=== PATIENT | male | born 1940 | race African-American/Black ===

== ENCOUNTER 2018-08-13 16:02 | Inpatient (IN) | payer MEDICARE ==
[~2018-08-13] VITALS: Ht 185.4 cm; Wt 99.8 kg
[2018-08-13] MEDS ORDERED: LIDOCAINE JELLY 2% 10ML URO-JET TOP ONE (17:30)
--- NOTE | 2018-08-13 17:55 | NUR ---
APPROX 1000 CC OUTPUT NOTED IN THURMAN, CATH CLAMPED AT THIS TIME. PT REPORTING IMMEDIATE RELIEF AT THIS TIME.
[2018-08-13 17:57] LABS: BASOPHILS % 0.3 % (0.0-1.0); EOSINOPHILS # (AUTO) 0.1 (0.0-0.4); EOSINOPHILS % 0.8 % (0.0-6.0); HEMATOCRIT 29.6 % (38.2-49.6); HEMOGLOBIN 9.7 g/dL (14.0-18.0); LYMPHOCYTES # (AUTO) 0.9 (1.0-3.2); LYMPHOCYTES % 11.7 % (18.0-39.1); MEAN CORPUSCULAR HEMOGLOBIN 26.4 pg (28-32); MEAN CORPUSCULAR HGB CONC 32.8 g/dL (31-35); MEAN CORPUSCULAR VOLUME 80.7 fL (81-99); MONOCYTES # (AUTO) 0.8 (0.2-0.8); MONOCYTES % 10.1 % (4.4-11.3); NEUTROPHILS # (AUTO) 5.7 (2.1-6.9); NEUTROPHILS % 76.4 % (38.7-80.0); PLATELET COUNT 181 x10e3/uL (140-360); RED BLOOD COUNT 3.67 x10e6/uL (4.3-5.7); RED CELL DISTRIBUTION WIDTH 14.7 % (11.7-14.4)
[2018-08-13 18:11] LABS: INR 1.04; PROTHROMBIN TIME 14.1 seconds (11.9-14.5)
[2018-08-13 18:14] LABS: COLOR,URINE AMBER (YELLOW)
[2018-08-13 18:15] LABS: BILIRUBIN,URINE 1+ (NEGATIVE); CLARITY,URINE HAZY (CLEAR); KETONES,URINE NEGATIVE (NEGATIVE); LEUKOCYTE ESTERASE ,URINE NEGATIVE (NEGATIVE); NITRITE,URINE NEGATIVE (NEGATIVE); PROTEIN,URINE DIPSTICK 2+ (NEGATIVE); URINE UROBILINOGEN 0.2 mg/dL (0.2 - 1)
[2018-08-13 18:17] LABS: RBC,URINE >50 /HPF (0-5)
[2018-08-13 18:18] LABS: AMORPHOUS SEDIMENT,URINE FEW (FEW); BACTERIA,URINE FEW /HPF; EPITHELIAL CELLS,URINE FEW /LPF; MUCUS,URINE FEW (RARE)
[2018-08-13 18:19] LABS: ALBUMIN 3.4 g/dL (3.5-5.0); ALBUMIN/GLOBULIN RATIO 0.8 (0.8-2.0); ANION GAP 12.2 mmol/L (8-16); CALCIUM 10.2 mg/dL (8.4-10.2); CREATININE, SERUM 1.89 mg/dL (0.72-1.25); MAGNESIUM 2.3 MG/DL (1.3-2.1); POTASSIUM 4.2 mmol/L (3.5-5.1)
[2018-08-13] MEDS: CEFTRIAXONE SOD 1 GM/NS 50 ML 50 ML IV SCH (20:45)
[2018-08-13] MEDS: SODIUM CHLORIDE 0.9% 1000ML 1,000 ML IV SCH (20:45)
[2018-08-13] MEDS: ONDANSETRON HCL INJ 2MG/ML 2ML 2 MG/ML VIAL IV PRN (20:45)
[2018-08-13] MEDS: MORPHINE SULFATE INJ 4 MG/ML INJ 1ML IV PRN (20:45)
[2018-08-13 21:25] VITALS: BP 141/77
[2018-08-13 21:38] VITALS: BP 141/77
[2018-08-13 21:40] VITALS: BP 141/77
[2018-08-13] MEDS ORDERED: CIPRO500 MG PO (23:17)
[2018-08-13] MEDS ORDERED: ULTRAM 50MG50 MG PO (23:17)
[2018-08-14] VITALS (8 sets, daily range): BP systolic 94–132; BP diastolic 56–65
[2018-08-14 05:36] LABS: BASOPHILS % 0.2 % (0.0-1.0); EOSINOPHILS % 0.5 % (0.0-6.0); HEMATOCRIT 26.7 % (38.2-49.6); HEMOGLOBIN 8.6 g/dL (14.0-18.0); LYMPHOCYTES # (AUTO) 1.1 (1.0-3.2); LYMPHOCYTES % 18.8 % (18.0-39.1); MEAN CORPUSCULAR HEMOGLOBIN 26.1 pg (28-32); MEAN CORPUSCULAR HGB CONC 32.2 g/dL (31-35); MEAN CORPUSCULAR VOLUME 81.2 fL (81-99); MONOCYTES # (AUTO) 0.6 (0.2-0.8); MONOCYTES % 9.6 % (4.4-11.3); NEUTROPHILS # (AUTO) 4.2 (2.1-6.9); NEUTROPHILS % 70.2 % (38.7-80.0); PLATELET COUNT 156 x10e3/uL (140-360); RED BLOOD COUNT 3.29 x10e6/uL (4.3-5.7); RED CELL DISTRIBUTION WIDTH 14.6 % (11.7-14.4)
[2018-08-14 05:58] LABS: ALANINE AMINOTRANSFERASE 13 IU/L (0-55); ALBUMIN 2.8 g/dL (3.5-5.0); ALBUMIN/GLOBULIN RATIO 0.8 (0.8-2.0); ALKALINE PHOSPHATASE 74 IU/L (40-150); ANION GAP 10.5 mmol/L (8-16); BLOOD UREA NITROGEN 14 mg/dL (7-26); BUN/CREATININE RATIO 13 (6-25); CALCIUM 9.3 mg/dL (8.4-10.2); CARBON DIOXIDE 28 mmol/L (22-29); CHLORIDE 108 mmol/L (98-107); CREATININE, SERUM 1.12 mg/dL (0.72-1.25); EST GLOMERULAR FILTRATION RATE > 60 ML/MIN (60-); GLUCOSE 105 mg/dL (74-118); POTASSIUM 3.5 mmol/L (3.5-5.1); SODIUM 143 mmol/L (136-145)
[2018-08-14] MEDS: SODIUM CHLORIDE 0.9% 1000ML 1,000 ML IV SCH (06:46)
[2018-08-14] MEDS: CEFTRIAXONE SOD 1 GM/NS 50 ML 50 ML IV SCH ×2 (09:00→20:52)
--- NOTE | 2018-08-14 09:00 | NUR ---
Simple irrigation provided. moderate amount of blood clots noted.
--- NOTE | 2018-08-14 10:10 | NUR ---
O aware of patient's status.
[2018-08-14] MEDS: SOD CHL 0.45%/POT CHL 20MEQ 1,000 ML IV SCH ×2 (10:47→18:43)
[2018-08-14] MEDS: MORPHINE SULFATE INJ 4 MG/ML INJ 1ML IV PRN ×2 (10:48→20:52)
[2018-08-14] MEDS ORDERED: IOPAMIDOL 370 MG/ML 200 ML INFUS..BTL INJ ONE (11:15)
[2018-08-14] MEDS ORDERED: SODIUM CHLORIDE 0.9% 250ML 250 ML ONE (11:15)
--- NOTE | 2018-08-14 12:00 | NUR ---
Simple irrigation done as ordered. moderate amount of blood clots noted.
--- NOTE | 2018-08-14 14:00 | NUR ---
Simple irrigation done as ordered. large amount of clots noted
[2018-08-14] MEDS: SENNA-S TABLET PO SCH (16:00)
--- NOTE | 2018-08-14 16:30 | NUR ---
Simple irrigation done as ordered. moderate amount of clots noted
--- NOTE | 2018-08-14 17:03 | History and Physical ---
CHIEF COMPLAINT: Urinary retention. HISTORY OF PRESENT ILLNESS: The patient is a 77 years old male with enlarged prostate, came in with urinary retention. The patient was having increase in abdominal pelvic discomfort. Chavez catheter placed. The patient does have gross hematuria. He is stable at this time. PAST MEDICAL HISTORY: Enlarged prostate with possible prostate cancer. PAST SURGICAL HISTORY: Lower back surgery. SOCIAL HISTORY: The patient does not smoke or use alcohol, no recreational drugs. ALLERGIES: NO KNOWN ALLERGIES. HOME MEDICATION: Cipro and tramadol. REVIEW OF SYSTEMS: Urinary retention, suprapubic pain, improving. PHYSICAL EXAMINATION: VITAL SIGNS: Temperature is 99.7, blood pressure 130/62, pulse rate 86, respirations 18. GENERAL: The patient is not in acute distress. HEENT: Normocephalic, atraumatic. Anicteric. NECK: Supple grossly. PULMONARY: Diminished breath sounds. CARDIOVASCULAR: Regular rate and rhythm. ABDOMEN: Soft, nontender, non-distention. Chavez catheter in place. Gross hematuria. EXTREMITIES: No cyanosis or edema. NEUROLOGIC: No gross focal deficit. LABORATORY DATA: Sodium is 143, potassium 3.5, chloride 108, bicarb 28, BUN 14, creatinine 1.1, glucose 105. WBC 5.9, hemoglobin 8.6, hematocrit 26.7, platelets are 156. IMPRESSION: 1. Urinary retention with a Chavez catheter in place, now with gross hematuria. 2. Enlarged prostate with possible prostate cancer. 3. Electrolyte disorder. 4. Acute blood loss anemia secondary to gross hematuria. PLAN: Repeat lab work. IV fluid with some potassium. Consult Dr. Jeronimo Nielson, patient's urologist. IV fluids. We will monitor the patient closely. We will repeat the lab work in the morning. Rocephin 1 g daily. MD VIKTORIYA Carr/KATIE /[id number]
[2018-08-14] MEDS: HYDROCODONE/APAP 10MG-325MG TAB PO PRN (18:43)
--- NOTE | 2018-08-14 18:45 | NUR ---
attempted to irrigate Chavez as ordered. Unable to aspirate to clear clots. Patient c/o discomfort. Paged
--- NOTE | 2018-08-14 19:00 | NUR ---
WALKING ROUNDS PERFORMED, RECEIVED PT LAYING SEMI FOWLERS IN BED, PT REQUESTING TO HAVE THURMAN REMOVED IT IS HURTING HIM TOO MUCH. MANUAL IRRIGATION ATTEMPTED, UNSUCCESSFUL. DAY SHIFT NURSE LEFT ROOM TO TALK WITH MD Nicolasa HAYDEN CONCERNING INABILITY TO FLUSH THURMAN, DAY SHIFT NURSE RECEIVED ORDERS. 1931 - DEFLATED BULB AND ADVANCED CATHETER, ABLE TO IRRIGATE MULTIPLE LARGE CLOTS AND DARK RED URINE. CONTINUED TO MANUAL IRRIGATE CLOTS OUT. TOTAL OF 1500ML OF MANUAL IRRIGATION PERFORMED. DAY SHIFT NURSE CONTINUED MANUAL IRRIGATION AT THIS TIME.
--- NOTE | 2018-08-14 19:05 | NUR ---
Dr.Hampel Renteria. aware of patient's status. See orders. Report given to oncoming nurse of patient's status.
--- NOTE | 2018-08-14 20:30 | NUR ---
AT THIS TIME DISCONTINUED [address] 24F CATHETER AND INSERTED 24F [address]H [address] CATHETER. MANUAL IRRIGATION CONTINUED, URINE NOTED TO BE BALDERRAMA RED BUT NO CLOTS IDENTIFIED. CONNECTED CBI AT THIS TIME. RESTARTED IVF.
[2018-08-15] VITALS (11 sets, daily range): BP systolic 90–172; BP diastolic 55–98
--- NOTE | 2018-08-15 01:41 | NUR ---
SPOKE WITH RADIOLOGY CONCERNING ABDOMEN AND PELVIS CT NOT BEING DICTATED. WAS INFORMED THAT THE IMAGES WERE NOT TRANSFERRING PROPERLY AND IN ENTIRETY TO OFFSITE RADIOLOGIST TO READ AND THE PROBLEM WAS BEING WORKED ON, RADIOLOGIST WILL BE HERE IN AM TO READ IMAGES.
[2018-08-15] MEDS: SOD CHL 0.45%/POT CHL 20MEQ 1,000 ML IV SCH ×3 (04:08→18:15)
[2018-08-15 05:46] LABS: BASOPHILS % 0.3 % (0.0-1.0); EOSINOPHILS # (AUTO) 0.1 (0.0-0.4); EOSINOPHILS % 1.1 % (0.0-6.0); HEMATOCRIT 23.4 % (38.2-49.6); LYMPHOCYTES # (AUTO) 1.4 (1.0-3.2); LYMPHOCYTES % 18.7 % (18.0-39.1); MEAN CORPUSCULAR HEMOGLOBIN 25.8 pg (28-32); MEAN CORPUSCULAR HGB CONC 32.5 g/dL (31-35); MEAN CORPUSCULAR VOLUME 79.3 fL (81-99); MONOCYTES # (AUTO) 0.8 (0.2-0.8); MONOCYTES % 10.5 % (4.4-11.3); NEUTROPHILS % 68.7 % (38.7-80.0); PLATELET COUNT 157 x10e3/uL (140-360); RED BLOOD COUNT 2.95 x10e6/uL (4.3-5.7); RED CELL DISTRIBUTION WIDTH 14.6 % (11.7-14.4)
[2018-08-15 05:50] LABS: HEMOGLOBIN 7.6 g/dL (14.0-18.0)
[2018-08-15 06:06] LABS: ANION GAP 12.7 mmol/L (8-16); BLOOD UREA NITROGEN 17 mg/dL (7-26); BUN/CREATININE RATIO 13 (6-25); CARBON DIOXIDE 25 mmol/L (22-29); CHLORIDE 106 mmol/L (98-107); CREATININE, SERUM 1.36 mg/dL (0.72-1.25); EST GLOMERULAR FILTRATION RATE > 60 ML/MIN (60-); GLUCOSE 104 mg/dL (74-118); POTASSIUM 3.7 mmol/L (3.5-5.1); SODIUM 140 mmol/L (136-145)
--- NOTE | 2018-08-15 06:07 | NUR ---
PAGE PLACED FOR MD Nicolasa HAYDEN CONCERNING PATIENT UPDATE ON CBI. PT HAS MAINTAINED BALDERRAMA RED URINE WITH NO CLOTS THE ENTIRE NIGHT WITH THE CBI RUNNING WIDE OPEN SINCE CBI STARTED AT 2029 ON 08/14. WAITING FOR CALLBACK.
--- NOTE | 2018-08-15 06:30 | NUR ---
SPOKE WITH MD Nicolasa HAYDEN CONCERNING PT BALDERRAMA URINE WITH CBI AND DECREASED HH. NEW ORDERS RECEIVED.
--- NOTE | 2018-08-15 07:00 | NUR ---
RECEIVED BEDSIDE SHIFT CHANGE REPORT FROM MONA CONSTANTINO. PT DENIES NEEDS AT THIS TIME.
--- NOTE | 2018-08-15 07:01 | NUR ---
BEDSIDE SHIFT REPORT PERFORMED. PT IS AAOX3, RR EVEN AND NON-LABORED. NO S/SX OF DISTRESS NOTED. LEFT PT LAYING SEMI FOWLERS IN BED, BED IN LOW LOCKED POSITION, SIDE RAILS UPX3, CALL LIGHT AND PHONE WITHIN REACH.
--- NOTE | 2018-08-15 07:27 | Diagnostic Imaging Report ---
EXAMINATION: CT of the abdomen and pelvis with contrast. TECHNIQUE: Spiral CT images of the abdomen and pelvis were performed from the lung bases to the lesser trochanters before and after the intravenous administration of 100 cc Isovue-370 per hematuria protocol. Coronal and sagittal reformatted images were obtained. COMPARISON: None. CLINICAL HISTORY:Hematuria, prostate cancer, anemia DISCUSSION: ABDOMEN/PELVIS: LOWER THORAX:Subsegmental atelectasis in the dependent lower lobes. Slight granuloma right lower lobe. HEPATOBILIARY: Subcentimeter hypoattenuating lesion in segment 4A, too small to further characterize but likely represent a small cyst. No additional focal hepatic lesion. No intrahepatic biliary dilatation. Gallbladder is unremarkable. SPLEEN: No splenomegaly. PANCREAS: No focal masses or ductal dilatation. ADRENALS: No adrenal nodules. KIDNEYS/URETERS: Mild bilateral hydronephrosis. 1.8 cm simple cyst in the right kidney. 1.8 cm simple cyst in the left kidney. Additional subcentimeter hypoattenuating lesions, too small to further characterize, within both kidneys, likely to represent additional small cysts. Noncontrast images show no calculi in the upper collecting systems or ureters. Urographic phase images show no filling defects in the visualized segments of the ureters. The distal third of the left ureter are poorly opacified, likely related to timing of acquisition. PELVIC ORGANS/BLADDER: The retention balloon of a Chavez catheter lies within the urinary bladder. Surrounding the retention balloon and occupying the majority of the urinary bladder is a large ill-defined hyperattenuating focus without enhancement on urographic images compatible with clot. The prostate is markedly enlarged, measuring approximately 8.2 cm AP x 8 cm transverse, with invasion of the left posterior-lateral wall of the urinary bladder exemplified on series 6 image 151. The seminal vesicles are not discretely identified. PERITONEUM/RETROPERITONEUM: No free air or fluid. LYMPH NODES: The above-described prostate mass is contiguous with a conglomerate of left pelvic sidewall/iliac chain lymph nodes measuring approximately 8 cm AP x 3 cm transverse in aggregate (series 6 image 126). metastatic right iliac chain lymphadenopathy measures 3.3 cm AP x 1.8 cm transverse. Retroperitoneal lymphadenopathy extends above the level of the renal veins with denial management representative lymph nodes measuring 1.4 cm short axis seen on series 6 image 53 and 3.6 cm AP x 2.4 cm transverse (series 6 image 67). Multiple enlarged aortocaval, retrocaval, and periaortic lymph nodes are also noted. The most superior enlarged lymph node is preaortic just inferior to the origin of the SMA, and measures 1.5 cm short axis as seen on series 6 image 53. VESSELS: Abdominal aorta, major branch vessels, and iliac arterial systems are patent. Portal vein, splenic vein, and central superior mesenteric vein are patent. GI TRACT: The large bowel shows no evidence of distention or wall thickening. Gas and fecal material are noted throughout. The appendix is normal. BONES AND SOFT TISSUE: Age indeterminant pathologic avulsion fracture of the right lesser trochanter with underlying 1.9 cm lytic lesion at the donor site of the femur (series 6 image 189). 1.5 cm lytic lesion in the right initial tuberosity (series 6 image 177). 1.5 cm lytic lesion in the left ilium adjacent to the SI joint. 2 cm lesion in the right ilium adjacent to the SI joint. Additional subcentimeter lytic lesions along the right iliac crest (series 6 image 108). Scattered lytic lesions of the axial skeleton involving the right lamina of L5 (series 6 image 100), the left transverse process of L2, the L1 vertebral body with pathologic mild anterior compression fracture, and the posterior aspect of the T9 vertebral body with extension to the pedicles as well as the partially visualized anterior aspect of the T8 vertebral body. IMPRESSION: Large (8 cm) mass originating in the prostate invades the left posterolateral urinary bladder wall and results in mild bilateral hydronephrosis. Large amount of blood clot within the urinary bladder adjacent to the retention balloon of an appropriately positioned Chavez catheter. Metastatic lymphadenopathy involves the left greater than right iliac chains and retroperitoneum, extending cranial to the level of the renal veins. Widespread osseous metastases as above, with age indeterminant pathologic avulsion injury of the right lesser trochanter and mild anterior compression fracture of L1. Signed by: Dr. Leif Amador M.D. on 08/15/2018 7:24 AM
[2018-08-15] MEDS ORDERED: ACETAMINOPHEN 325 MG TAB PO NR (08:21)
[2018-08-15] MEDS ORDERED: FUROSEMIDE INJ 10 MG/ML 2 ML VIAL IV PRN (08:30)
[2018-08-15] MEDS ORDERED: DIPHENHYDRAMINE HCL INJ 50 MG/ML VIAL IV NR (08:30)
[2018-08-15] MEDS ORDERED: SODIUM CHLORIDE 0.9% 250ML 250 ML IV NR ×2 (08:30→09:00)
[2018-08-15] MEDS: SENNA-S TABLET PO SCH ×2 (08:46→16:51)
[2018-08-15] MEDS: CEFTRIAXONE SOD 1 GM/NS 50 ML 50 ML IV SCH ×2 (08:50→22:45)
[2018-08-15] MEDS: FUROSEMIDE INJ 10 MG/ML 2 ML VIAL IV PRN ×2 (14:47→18:55)
[2018-08-15] MEDS: MORPHINE SULFATE INJ 4 MG/ML INJ 1ML IV PRN ×2 (14:47→18:34)
--- NOTE | 2018-08-15 15:28 | Diagnostic Imaging Report ---
Exam: Pelvis, single frontal view, right femur 2 views History: Leg pain Comparison: CT abdomen and pelvis 08/14/2018 Findings: Pathologic avulsion of the right lesser trochanter is again seen, with 2.8 cm upward retraction. 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 Chavez catheter projects over the pelvis. Distally, the femur is intact without additional displaced fracture or dislocation. No osseous destructive lesions. Degenerative arthrosis of the knee partially visualized. Soft tissues are unremarkable. Impression: Pathologic avulsion injury of the right lesser trochanter with 2.8 cm retraction is seen to better advantage on comparison CT abdomen and pelvis 08/14/2018. Refer to the report for comparison CT for description of additional presumed osseous metastatic lesions. No additional displaced fracture. Signed by: Dr. Leif Amador M.D. on 08/15/2018 3:25 PM
--- NOTE | 2018-08-15 18:00 | NUR ---
PT'S THURMAN CONTINUED TO CLOT AND BLOCK EVEN WITH WIDE OPEN BLADDER IRRIGATION. CLOTS AND FLUID LEAKING AROUND THURMAN. HAVING TO MANUAL IRRIGATE AND PULL CLOTS OUT OF THURMAN EVERY 15 TO 20 MIN. TO KEEP IRRIGATION GOING WITHOUT PAIN TO PT. THIS HAS BEEN NEEDING TO BE DONE SINCE 0900. CALLED DR. HAYDEN. ORDER GIVEN TO TRANSFER TO ICU.
[2018-08-15] MEDS: ONDANSETRON HCL INJ 2MG/ML 2ML 2 MG/ML VIAL IV PRN (18:34)
--- NOTE | 2018-08-15 20:04 | Consultation ---
DATE OF CONSULTATION: 08/15/2018 CHIEF COMPLAINT: Right hip pain. HISTORY OF PRESENT ILLNESS: The patient is a 77-year-old gentleman with a history of prostate cancer. He states that he has been treated for this cancer for the last five years. In the last few weeks, he has had some progressive problems. He developed urinary retention and was admitted to the hospital. He is noted to have widespread metastases of his prostate cancer. Orthopedic consultation was requested for a lesion involving his proximal right femur. PAST MEDICAL HISTORY: Prostate cancer. PAST SURGICAL HISTORY: Previous surgeries include lumbar surgery and right knee cyst removal. MEDICATIONS: Please see admission H and P. ALLERGIES: HE DENIES ANY DRUG ALLERGIES. SOCIAL HISTORY: He does not smoke or drink. He lives at home with his . 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 He has seven grown children. PHYSICAL EXAMINATION: He appears somewhat somnolent. He is in bed. He is receiving blood transfusions. We did not attempt to get him up and walk. He has pain with any attempted passive range of motion of his right hip. He has difficulty lifting his right lower extremity. He has diminished muscle tone and some widespread edema in the right lower extremity. LABORATORY STUDIES: CT of the abdomen and pelvis was reviewed. He has widespread metastases in his pelvis, lumbar spine and a lesion in the proximal right femur. This appears to have led to an avulsion of his lesser trochanter. IMPRESSION: Metastatic prostate cancer with bone lesions. He has a lesion in his proximal femur, which likely represents an impending fracture. I will order some plain x-rays to further assess. I explained the findings and the possibility of prophylactic fixation to the patient. He states he understands and we will discuss further once we have his x-rays. Thank you for the consultation. Leif Redd MD DR/KATIE /[id number]
[2018-08-15 20:22] LABS: HEMATOCRIT 30.2 % (38.2-49.6); HEMOGLOBIN 9.9 g/dL (14.0-18.0)
[2018-08-15] MEDS ORDERED: BELLADONNA/OPIUM 30 MG SUPP RC PRN (21:15)
--- NOTE | 2018-08-15 21:15 | NUR ---
Updated Dr. Nicolasa Nielson on patient's current status and repeat Hgb 9.9 Patient has received 2 PRBC at this current time, MD updated on previous order to transfuse [address] Nielson ordered to transfuse 1 more PRBC at this time.
[2018-08-15] MEDS ORDERED: BELLADONNA/OPIUM 60 MG SUPP PR PRN (21:30)
[2018-08-15] MEDS ORDERED: SODIUM CHLORIDE 0.9% 250ML 250 ML ONE (22:26)
--- NOTE | 2018-08-15 23:48 | NUR ---
Notified Dr. Alvarez of HR in 120's, BP, and positive SIRS ALERT in sepsis screening. No new orders received. No need to draw lactic acid per Dr. Alvarez. Updated MD on blood transfusion order per Dr. Nielson.
[2018-08-16] VITALS (25 sets, daily range): BP systolic 87–128; BP diastolic 53–78
[2018-08-16] MEDS: ACETAMINOPHEN 325 MG TAB PO PRN (00:41)
[2018-08-16] MEDS: SOD CHL 0.45%/POT CHL 20MEQ 1,000 ML IV SCH ×3 (03:00→18:15)
[2018-08-16 05:09] LABS: BASOPHILS % 0.4 % (0.0-1.0); EOSINOPHILS # (AUTO) 0.1 (0.0-0.4); EOSINOPHILS % 1.7 % (0.0-6.0); HEMATOCRIT 26.7 % (38.2-49.6); HEMOGLOBIN 8.8 g/dL (14.0-18.0); LYMPHOCYTES # (AUTO) 1.4 (1.0-3.2); LYMPHOCYTES % 18.5 % (18.0-39.1); MEAN CORPUSCULAR HEMOGLOBIN 26.9 pg (28-32); MEAN CORPUSCULAR VOLUME 81.7 fL (81-99); MONOCYTES # (AUTO) 0.9 (0.2-0.8); MONOCYTES % 11.4 % (4.4-11.3); NEUTROPHILS # (AUTO) 5.1 (2.1-6.9); NEUTROPHILS % 67.1 % (38.7-80.0); PLATELET COUNT 109 x10e3/uL (140-360); RED BLOOD COUNT 3.27 x10e6/uL (4.3-5.7); RED CELL DISTRIBUTION WIDTH 14.5 % (11.7-14.4)
[2018-08-16 05:32] LABS: ALANINE AMINOTRANSFERASE 11 IU/L (0-55); ALBUMIN 2.3 g/dL (3.5-5.0); ALBUMIN/GLOBULIN RATIO 0.8 (0.8-2.0); ALKALINE PHOSPHATASE 57 IU/L (40-150); ANION GAP 11.8 mmol/L (8-16); BLOOD UREA NITROGEN 25 mg/dL (7-26); BUN/CREATININE RATIO 19 (6-25); CALCIUM 8.8 mg/dL (8.4-10.2); CARBON DIOXIDE 24 mmol/L (22-29); CHLORIDE 104 mmol/L (98-107); CREATININE, SERUM 1.32 mg/dL (0.72-1.25); EST GLOMERULAR FILTRATION RATE > 60 ML/MIN (60-); GLUCOSE 114 mg/dL (74-118); MAGNESIUM 1.8 MG/DL (1.3-2.1); POTASSIUM 3.8 mmol/L (3.5-5.1); SODIUM 136 mmol/L (136-145)
--- NOTE | 2018-08-16 06:15 | NUR ---
Message left with answering service at [address] Nielson regarding drop of Hgb. Awaiting return call.
--- NOTE | 2018-08-16 07:02 | NUR ---
Dr. Nielson rounding at bedside. Dr. Nielson ordered patient to receive 1 more unit PRBC. CBC in AM. Per MD, continue manual irrigation Q 2 as well as CBI.
[2018-08-16] MEDS: CEFTRIAXONE SOD 1 GM/NS 50 ML 50 ML IV SCH ×2 (07:44→22:05)
[2018-08-16] MEDS ORDERED: SODIUM CHLORIDE 0.9% 250ML 250 ML ONE (07:55)
[2018-08-16] MEDS: SENNA-S TABLET PO SCH ×2 (08:00→17:18)
[2018-08-16] MEDS: FUROSEMIDE INJ 10 MG/ML 2 ML VIAL IV PRN (11:31)
--- NOTE | 2018-08-16 13:43 | NUR ---
ETHICS CONSULT QUESTION: ICU nursing staff requested the Ethics Consult Service concerning the patient's family's unrealistic expectation of the plan of care, specifically statements made by pt's surrounding divine healing. ASSESSMENT: I spoke to the patient concerning his illness and he states that he is a person of linnette but is, "trusting God either way" thus he appears to be coming to terms with the severity of his condition. Pt states he is "blessed" to know the love of his family. His family is a strong emotional/spiritual support and described his family as providing a feeling of being "full of love." Pt states one of his sons is a "preacher" and helps with his spiritual needs. There were no family members at bedside. The pt states he "trusts" his doctor and indicates he is willing to follow his physician's advice moving forward. RECOMMENDATION: Based on my visit this consult is best categorized as a spiritual care need due to insufficient criteria for an ethics consult. However, it would be appropriate for the music typographer to follow this patient as able. Thank you for this consult. Please re-consult as needed. RUPALI Julian, Ethics Consult Service [facility] O: [phone] Pager: [phone] ([phone] number calling from)
--- NOTE | 2018-08-16 22:27 | NUR ---
Left voicemail message for Dr. Alvarez at [phone] regarding patient request for suppository or medication for constipation. Awaiting return call.
[2018-08-17] VITALS (22 sets, daily range): BP systolic 104–129; BP diastolic 48–96
[2018-08-17] MEDS: SOD CHL 0.45%/POT CHL 20MEQ 1,000 ML IV SCH ×3 (00:06→18:15)
[2018-08-17 05:21] LABS: BASOPHILS % 0.3 % (0.0-1.0); EOSINOPHILS # (AUTO) 0.3 (0.0-0.4); EOSINOPHILS % 3.9 % (0.0-6.0); HEMATOCRIT 26.3 % (38.2-49.6); HEMOGLOBIN 8.7 g/dL (14.0-18.0); LYMPHOCYTES # (AUTO) 1.3 (1.0-3.2); LYMPHOCYTES % 17.4 % (18.0-39.1); MEAN CORPUSCULAR HEMOGLOBIN 27.5 pg (28-32); MEAN CORPUSCULAR HGB CONC 33.1 g/dL (31-35); MEAN CORPUSCULAR VOLUME 83.2 fL (81-99); MONOCYTES # (AUTO) 0.7 (0.2-0.8); MONOCYTES % 9.7 % (4.4-11.3); NEUTROPHILS # (AUTO) 5.1 (2.1-6.9); NEUTROPHILS % 67.9 % (38.7-80.0); PLATELET COUNT 108 x10e3/uL (140-360); RED BLOOD COUNT 3.16 x10e6/uL (4.3-5.7); RED CELL DISTRIBUTION WIDTH 14.6 % (11.7-14.4)
[2018-08-17 05:39] LABS: ANION GAP 9.7 mmol/L (8-16); BLOOD UREA NITROGEN 18 mg/dL (7-26); BUN/CREATININE RATIO 19 (6-25); CALCIUM 8.4 mg/dL (8.4-10.2); CARBON DIOXIDE 27 mmol/L (22-29); CHLORIDE 105 mmol/L (98-107); CREATININE, SERUM 0.95 mg/dL (0.72-1.25); EST GLOMERULAR FILTRATION RATE > 60 ML/MIN (60-); GLUCOSE 104 mg/dL (74-118); POTASSIUM 3.7 mmol/L (3.5-5.1); SODIUM 138 mmol/L (136-145)
[2018-08-17] MEDS: CEFTRIAXONE SOD 1 GM/NS 50 ML 50 ML IV SCH ×2 (07:57→20:15)
[2018-08-17] MEDS: SENNA-S TABLET PO SCH ×2 (07:58→17:06)
[2018-08-17] MEDS ORDERED: BELLADONNA/OPIUM 60 MG SUPP PR ONE (09:48)
[2018-08-17] MEDS ORDERED: IOPAMIDOL 610MG/1ML 300 MG/ML VIAL IV ONE (09:48)
--- NOTE | 2018-08-17 10:00 | NUR ---
PT TAKEN FOR SURGERY,
[2018-08-17] MEDS ORDERED: FENTANYL CITRATE/PF 100MCG/2 ML INJ ONE ×2 (12:09→18:07)
[2018-08-17] MEDS ORDERED: SODIUM CHLORIDE 0.9% 250ML 250 ML ONE ×3 (13:51→15:13)
[2018-08-17] MEDS ORDERED: KETAMINE HCL INJ 50 MG/ML 10 ML VIAL ONE (18:07)
[2018-08-17] MEDS ORDERED: MIDAZOLAM HCL 2 MG/2 ML VIAL ONE (18:07)
[2018-08-17] MEDS ORDERED: ONDANSETRON HCL INJ 2MG/ML 2ML 2 MG/ML VIAL ONE (18:46)
[2018-08-17] MEDS ORDERED: SEVOFLURANE INHAL SOLN 250 ML PEN BTL ONE (18:46)
[2018-08-17] MEDS ORDERED: PROPOFOL IV EMULSION 10 MG/ML 20 ML VIAL ONE (18:46)
[2018-08-17] MEDS ORDERED: LIDOCAINE HCL 2% LOCAL INJ 5 ML SDV VIAL INJ ONE (18:46)
--- NOTE | 2018-08-17 21:27 | NUR ---
prbc started Addendum: 08/18/18 at 0017 by Lynn Mcconnell RN completed. no s/s reaction
[2018-08-17] MEDS: CEPACOL SORE THROAT LOZENGES PO PRN (21:30)
[2018-08-17] MEDS ORDERED: CEPACOL SORE THROAT LOZENGES PO ONE (22:27)
[2018-08-18] VITALS (24 sets, daily range): BP systolic 115–138; BP diastolic 50–79
[2018-08-18] MEDS: SOD CHL 0.45%/POT CHL 20MEQ 1,000 ML IV SCH ×2 (02:15→06:46)
[2018-08-18 05:07] LABS: BASOPHILS % 0.2 % (0.0-1.0); EOSINOPHILS # (AUTO) 0.2 (0.0-0.4); EOSINOPHILS % 2.3 % (0.0-6.0); LYMPHOCYTES % 16.1 % (18.0-39.1); MEAN CORPUSCULAR HEMOGLOBIN 27.6 pg (28-32); MEAN CORPUSCULAR HGB CONC 33.3 g/dL (31-35); MEAN CORPUSCULAR VOLUME 82.8 fL (81-99); MONOCYTES # (AUTO) 0.6 (0.2-0.8); MONOCYTES % 8.8 % (4.4-11.3); NEUTROPHILS # (AUTO) 4.6 (2.1-6.9); NEUTROPHILS % 71.8 % (38.7-80.0); PLATELET COUNT 127 x10e3/uL (140-360); RED BLOOD COUNT 3.26 x10e6/uL (4.3-5.7); RED CELL DISTRIBUTION WIDTH 14.3 % (11.7-14.4)
[2018-08-18 05:34] LABS: ANION GAP 12.1 mmol/L (8-16); CALCIUM 8.9 mg/dL (8.4-10.2); CREATININE, SERUM 2.24 mg/dL (0.72-1.25); POTASSIUM 4.1 mmol/L (3.5-5.1)
[2018-08-18] MEDS: SENNA-S TABLET PO SCH ×2 (08:23→18:26)
[2018-08-18] MEDS: CEFTRIAXONE SOD 1 GM/NS 50 ML 50 ML IV SCH ×2 (08:23→20:53)
--- NOTE | 2018-08-18 08:32 | Diagnostic Imaging Report ---
EXAM: US RENAL RETROPERITONEAL COMP DATE: 08/18/2018 12:00 AM INDICATION: ^ARF. NEVER SAW U/O'S, IF HYDRO, NEEDS PCN/STENT ^[id number] ^[id number] COMPARISON: CT abdomen/pelvis, 08/14/2018 FINDINGS: Grayscale and color flow Doppler ultrasound of the kidneys and urinary bladder performed. Right kidney: 11.4 x 5.8 x 6.1 cm. Cortical echogenicity normal. Cortical thickness 2.3 cm. The right renal collecting system is dilated. No contour deforming mass. Left kidney: 11.3 x 6.6 x 5.1 cm. Cortical thickness 2.5 cm. Cortical echogenicity normal. The left collecting system is dilated. No contour deforming mass. Urinary bladder: The bladder contains a Chavez catheter and is decompressed. The prostate is enlarged measuring 6.0 x 5.0 x 7.1 cm with a calculated volume of 112 cc IMPRESSION: 1. Mild to moderate bilateral hydronephrosis. No contour deforming renal mass. 2. Urinary bladder contains Chavez catheter and is decompressed. Marked enlargement of the prostate noted. Signed by: Dr. Toney Olmedo M.D. on 08/18/2018 8:29 AM
[2018-08-18] MEDS: SODIUM CHLORIDE 0.9% 1000ML 1,000 ML IV SCH ×2 (10:19→20:53)
--- NOTE | 2018-08-18 10:35 | NUR ---
MD ANDERSON NOTIFIED OF RENAL ULTRASOUND, RECEIVED ORDERS
--- NOTE | 2018-08-18 12:05 | NUR ---
ASSESSMENT: Spiritual concern Pt feels powerless concerning "procedure after procedure." Pt states his family ( and seven children) are supportive and have been visiting in the evenings. Family is central to pt's life and values. Intervention: Provided empathic listening and prayer. Established rapport and connectedness. Facilitated conversation about pt's values. Outcome: Pt's expressed gratitude for visit and requested follow up. RUPALI Amezquitalain Spiritual Care Department O: [phone] Pager: [phone] ([phone] number calling from)
--- NOTE | 2018-08-18 13:21 | NUR ---
Nutrition Screen Note RD Recommendation for Physician: -Continue current diet as ordered Plan of Care: RD following, monitoring for tolerance and adequacy Nutrition reason for involvement: LOS Primary Diagnose(s): Metastatic prostate cancer with bone lesions. PMH: prostate cancer Ht: 73in Wt: 220lb BMI: 29kg/m2 IBW: 184lb RD Assessment: (08/18) Chart reviewed. Labs and meds reviewed. 77yo M, who was admitted for urinary retention. Visited pt in the room. Pt reported good appetite without any GI complains. Pt denied any chewing or swallowing difficulty. 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 Will continue to monitor and follow. Current Diet: cardiac diet Malnutrition Evaluation (08/18) The patient does not meet criteria for a specified degree of malnutrition at this time. Will re-evaluate at follow-up as appropriate. Diet Education Needs Assessment: Diet education not indicated. Nutrition Care Level: low Signed: Susannah Herrera, MS, RD, LD
[2018-08-18] MEDS ORDERED: MIDAZOLAM HCL 2 MG/2 ML VIAL ONE (14:09)
[2018-08-18] MEDS ORDERED: SODIUM CHLORIDE 0.9% 500ML 1,000 ML ONE (14:10)
[2018-08-18] MEDS ORDERED: FENTANYL CITRATE/PF 100MCG/2 ML INJ ONE (14:10)
[2018-08-18] MEDS ORDERED: LIDOCAINE HCL 2% LOCAL 20 ML VIAL ONE (14:10)
[2018-08-18] MEDS: HYDROCODONE/APAP 10MG-325MG TAB PO PRN (20:53)
[2018-08-19] VITALS (19 sets, daily range): BP systolic 116–150; BP diastolic 62–96
--- NOTE | 2018-08-19 00:11 | Consultation ---
DATE OF CONSULTATION: 08/18/2018 HISTORY OF PRESENT ILLNESS: History is predominantly from the patient, partly from the chart. This is a 77-year-old gentleman with stage IV prostate cancer with the last PSA of 111, apparent bone metastases, underwent extensive urologic procedure, clot evacuation with cystoscopy and TURP, apparently has stents in his ureters. Renal consult for management of acute kidney injury. Looking at the records, on August 13, the patient had a serum creatinine of 1.9. The patient himself denies any prior history of any renal insufficiency or kidney stone disease. He was started on Lupron injections about several years ago. Currently lying supine. Denies shortness of breath. No nausea or vomiting. His kidney ultrasound shows [id number] bilateral hydronephrosis. He is currently on continuous bladder irrigation. Had an abdominal CT pelvis with contrast done on the August 14, and had significant findings of a large 8 cm mass originating in the prostate invades left posterolateral urinary bladder wall, metastatic lymphadenopathy, widespread osseous metastases as above, and mild anterior compression fracture of L1. Current labs show a hemoglobin of 9. Chemistry show a calcium level of 8.9. Liver functions noted. Total protein 5.3, potassium 4.1, bicarbonate 26, and creatinine 2.24. Urine culture results are pending. PHYSICAL EXAMINATION: GENERAL: Awake and alert, lying supine in no apparent distress. VITAL SIGNS: Blood pressure 123/72, pulse rate 93, afebrile. HEAD AND NECK: Cornea clear. Mucosa moist. LUNGS: Relatively clear. No rales or rhonchi. HEART: S1 and S2 audible. ABDOMEN: Otherwise soft and nontender. No deep palpation done. LOWER EXTREMITY: No edema. : Indwelling Chavez catheter with bladder irrigation underway. IMPRESSION AND PLAN: Acute kidney injury. Possible contrast nephropathy prior to that see if the patient claims his kidney function was normal. No evidence of fluid overload. IV fluids changed to normal saline. Continue IV hydration. Monitor the patient's blood pressure and electrolytes with you. Fortunately, we are not dealing with hypercalcemia. He is status post packed RBC transfusion, metastatic prostate cancer. Fairly advanced, prognosis is guarded. Please see orders, discussed with family at bedside RN. SalMD JOZEF Peoples/KATIE /[id number]
[2018-08-19] MEDS: HYDROCODONE/APAP 10MG-325MG TAB PO PRN (03:10)
[2018-08-19 05:58] LABS: ALANINE AMINOTRANSFERASE 15 IU/L (0-55); ALBUMIN 2.2 g/dL (3.5-5.0); ALBUMIN/GLOBULIN RATIO 0.7 (0.8-2.0); ALKALINE PHOSPHATASE 63 IU/L (40-150); ANION GAP 10.9 mmol/L (8-16); BLOOD UREA NITROGEN 20 mg/dL (7-26); BUN/CREATININE RATIO 17 (6-25); CALCIUM 8.7 mg/dL (8.4-10.2); CARBON DIOXIDE 27 mmol/L (22-29); CHLORIDE 107 mmol/L (98-107); CREATININE, SERUM 1.17 mg/dL (0.72-1.25); EST GLOMERULAR FILTRATION RATE > 60 ML/MIN (60-); GLUCOSE 99 mg/dL (74-118); POTASSIUM 3.9 mmol/L (3.5-5.1); SODIUM 141 mmol/L (136-145)
[2018-08-19] MEDS: SODIUM CHLORIDE 0.9% 1000ML 1,000 ML IV SCH ×3 (06:15→16:15)
[2018-08-19] MEDS: CEFTRIAXONE SOD 1 GM/NS 50 ML 50 ML IV SCH ×2 (08:00→21:20)
[2018-08-19] MEDS: SENNA-S TABLET PO SCH ×2 (09:29→17:00)
--- NOTE | 2018-08-19 09:35 | NUR ---
Pt sleeping soundly and no family present. Clay Press Operator followed up with RN. Will continue to follow as able. RUPALI BENNETT Clay Press Operator Spiritual Care Department O: [phone] Pager: [phone] ([phone] number calling from)
--- NOTE | 2018-08-19 12:09 | Progress Note ---
DATE: 08/19/2018 SUBJECTIVE: He has some bladder area discomfort. Creatinine is coming down. He remains on irrigation along with nephrostomies, with underlying metastatic prostate cancer. OBJECTIVE: VITAL SIGNS: Temperature is 98.1, pulse 96, and blood pressure 122/70. CHEST: Clear. EXTREMITIES: No edema. ABDOMEN: Suprapubic fullness. : Chavez catheter in place. BACK: Shows nephrostomy tubes draining. LABORATORY DATA: Hemoglobin is 9. Creatinine is down to 1.17, serum CO2 27, and sodium is 141. ASSESSMENT: Acute kidney injury, likely from obstruction. Consider contrast injury, which is now improving. Satisfactory blood pressure, satisfactory electrolytes. PLAN: From Renal standpoint, no new changes were suggested. However, I did ask staff to get in touch with Urology given his bladder area discomfort to see if irrigation rate needs to be adjusted. We will follow along. MD HARVEY Malone/KATIE /[id number]
[2018-08-19] MEDS ORDERED: ONDANSETRON HCL 4 MG ORAL DISINTEGRATING TAB PO PRN (13:30)
[2018-08-20] VITALS (18 sets, daily range): BP systolic 102–143; BP diastolic 56–98
[2018-08-20] MEDS: SODIUM CHLORIDE 0.9% 1000ML 1,000 ML IV SCH (01:13)
[2018-08-20 05:20] LABS: BASOPHILS % 0.3 % (0.0-1.0); EOSINOPHILS # (AUTO) 0.4 (0.0-0.4); EOSINOPHILS % 5.9 % (0.0-6.0); HEMATOCRIT 26.5 % (38.2-49.6); HEMOGLOBIN 8.8 g/dL (14.0-18.0); LYMPHOCYTES # (AUTO) 1.4 (1.0-3.2); LYMPHOCYTES % 20.2 % (18.0-39.1); MEAN CORPUSCULAR HEMOGLOBIN 27.7 pg (28-32); MEAN CORPUSCULAR HGB CONC 33.2 g/dL (31-35); MEAN CORPUSCULAR VOLUME 83.3 fL (81-99); MONOCYTES # (AUTO) 0.5 (0.2-0.8); MONOCYTES % 7.4 % (4.4-11.3); NEUTROPHILS # (AUTO) 4.5 (2.1-6.9); NEUTROPHILS % 65.6 % (38.7-80.0); PLATELET COUNT 147 x10e3/uL (140-360); RED BLOOD COUNT 3.18 x10e6/uL (4.3-5.7); RED CELL DISTRIBUTION WIDTH 14.4 % (11.7-14.4)
[2018-08-20 05:37] LABS: ANION GAP 10.9 mmol/L (8-16); BLOOD UREA NITROGEN 12 mg/dL (7-26); BUN/CREATININE RATIO 15 (6-25); CALCIUM 8.6 mg/dL (8.4-10.2); CARBON DIOXIDE 28 mmol/L (22-29); CHLORIDE 106 mmol/L (98-107); CREATININE, SERUM 0.81 mg/dL (0.72-1.25); EST GLOMERULAR FILTRATION RATE > 60 ML/MIN (60-); GLUCOSE 97 mg/dL (74-118); POTASSIUM 3.9 mmol/L (3.5-5.1); SODIUM 141 mmol/L (136-145)
[2018-08-20] MEDS: CEFTRIAXONE SOD 1 GM/NS 50 ML 50 ML IV SCH ×2 (08:00→20:33)
[2018-08-20] MEDS: SENNA-S TABLET PO SCH ×2 (08:48→17:00)
--- NOTE | 2018-08-20 12:00 | NUR ---
Physical therapy here to ambulate patient and patient ambulating down the medel with bedside walker and tolerating well. Respirations are even and unlabored. Denies any pain or discomfort. V/S are stable. Patient sitting in chair after ambulating and doing well.
--- NOTE | 2018-08-20 13:00 | NUR ---
Continous bladder irrigation in progress via 3-way Chavez catheter and tolerating well. [place] colored urine draining in Chavez catheter. No clots. Right and Left Neprostomy tube both draining red colored urine without any clots.
--- NOTE | 2018-08-20 15:00 | NUR ---
Patient assisted to bedside commode and had large, brown, soft bowel movement.
[2018-08-20] MEDS: ACETAMINOPHEN 325 MG TAB PO PRN (17:29)
--- NOTE | 2018-08-20 17:45 | NUR ---
Patient called to complain of left posterior neck pain and medicated with Tylenol 650mg PO for pain at 17:30. Sitting in chair and tolerating well. V/S are stable.
--- NOTE | 2018-08-20 21:00 | NUR ---
Pt received, transferred from ICU. Pt A&O and in no apparent distress. Pt on CBI, no tele, and RA. Pt family son at bedside. All safety measures ensured, pt alarm on, and pt call ayala near. Pt encouraged to use call ayala for assistance.
[2018-08-21] VITALS (7 sets, daily range): BP systolic 100–143; BP diastolic 55–80
--- NOTE | 2018-08-21 06:50 | NUR ---
RECEIVED PATIENT RESTING IN BED, RESPIRATIONS EVEN AND UNLABORED. NO ACUTE DISTRESS NOTED. CALL LIGHT WITHIN REACH. BED IN THE LOWEST POSITION.
--- NOTE | 2018-08-21 07:01 | NUR ---
Bedside report and walking rounds complete. Pt resting in bed and in no apparent distress. All safety measured ensured.
[2018-08-21] MEDS ORDERED: SODIUM CHLORIDE 0.9% 250ML 250 ML ONE (07:58)
[2018-08-21] MEDS: SENNA-S TABLET PO SCH ×2 (08:09→16:55)
[2018-08-21] MEDS: CEFTRIAXONE SOD 1 GM/NS 50 ML 50 ML IV SCH ×2 (08:09→20:31)
--- NOTE | 2018-08-21 12:17 | NUR ---
EMPTIED 600ML OF LIGH LULU URINE FROM RIGHT NEPHROSTOMY TUBE.
--- NOTE | 2018-08-21 19:04 | NUR ---
REPORT GIVEN TO ONCOMING NURSE, WALKING ROUNDS DONE. PATIENT IS RESTING IN BED. NO ACUTE DISTRESS NOTED. FAMILY AT BEDSIDE. CALL LIGHT WITHIN REACH. BED IN THE LOWEST POSITION.
--- NOTE | 2018-08-21 19:14 | NUR ---
Beside report received and walking rounds complete. Pt resting in bed and in no apparent distress. Pt on CBI. All safety measures ensured and pt call ayala near. Pt encouraged to use call ayala for assistance.
[2018-08-22] VITALS (8 sets, daily range): BP systolic 101–119; BP diastolic 55–66
--- NOTE | 2018-08-22 04:35 | NUR ---
cloths around campbell slightly soiled and changed
--- NOTE | 2018-08-22 08:40 | NUR ---
Patient resting in bed, surgical site on penile area dressing is intact. urine is clear, Dr Nisreen Renteria had rounds. Patient not in any distress
--- NOTE | 2018-08-22 09:41 | Diagnostic Imaging Report ---
Exam: KUB - 2 views Clinical History: Document bilateral ureteral stent position. Comparison: CT abdomen/pelvis 08/14/2018 and renal ultrasound 08/18/2018. Findings: There are bilateral percutaneous nephroureteral stents with the proximal pigtails overlying the expected position of the renal pelvises, and the distal pigtails overlying the expected location of the bladder. There is a Chavez catheter in the bladder. No evidence of urinary stone. No evidence of nephrolithiasis. 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 Nonobstructive bowel gas pattern. Impression: Bilateral percutaneous nephroureteral stents as above. Signed by: Dr. Tatiana Brito MD on 08/22/2018 9:38 AM
[2018-08-22] MEDS: CEFTRIAXONE SOD 1 GM/NS 50 ML 50 ML IV SCH ×2 (09:42→21:42)
[2018-08-22] MEDS: SENNA-S TABLET PO SCH ×2 (09:42→18:23)
--- NOTE | 2018-08-22 09:58 | NUR ---
ASSESSMENT: Spiritual concern Pt anticipating another in a series of procedures. Pt recounted previous procedure. Pt states he had a number of friends and family visit over the weekend. Intervention: Provided empathic listening and pastoral presence. Reminded pt of availability of crossing watchman during hospitalization. Outcome: Will continue to follow as able. RUPALI BENNETT Hospice Massage Therapist Spiritual Care Department O: [phone] Pager: [phone] ([phone] number calling from)
--- NOTE | 2018-08-22 11:54 | NUR ---
Dr Redd had rounds
--- NOTE | 2018-08-22 13:42 | Progress Note ---
DATE: SUBJECTIVE: No swelling. Denies any nausea or vomiting. Renal function stable OBJECTIVE: VITAL SIGNS: Temperature 99.1, pulse 82, and blood pressure 112/55. CHEST: Clear. EXTREMITIES: No edema. : Chavez catheter in place. ASSESSMENT: Acute kidney injury, improved, likely from obstruction, possibly contrast. Creatinine is now 0.8. PLAN: Avoid nephrotoxins. Renal will sign off. Thank you for allowing us to participate in Mr. Keller's care. If any problems, please call me on [phone]. MD RUFUS MaloneK/KATIE /[id number] MTDD
--- NOTE | 2018-08-22 19:00 | NUR ---
Report and rounds completed. Patient in bed. Call light within reach. No issues or concerns. Family at bedside. Will continue to monitor.
[2018-08-23 04:49] VITALS: BP 139/67
--- NOTE | 2018-08-23 06:00 | NUR ---
Patient resting in bed, call light within reach. CBI slow gtt. Nephrostomy tubes emptied. No issues or concerns. Will continue to monitor.
--- NOTE | 2018-08-23 07:00 | NUR ---
Dr Nielson on unit, requested nephrostomy tubes to be clamped. Nephrosotomy tubes clamped Brady. Will continue to monitor.
--- NOTE | 2018-08-23 07:09 | NUR ---
Left message with Dr Nielson's office for clarification of orders. Spoke with Sofia
--- NOTE | 2018-08-23 07:17 | NUR ---
Return call from Dr Nielson. Clamp stacia nephrostomy tube. Clarification on CBI. Stop CBI at this time and restart if bleeding noted.
--- NOTE | 2018-08-23 07:25 | NUR ---
CBI clamped. Oncoming nurse notified.
[2018-08-23 08:06] VITALS: BP 120/62
[2018-08-23] MEDS: SENNA-S TABLET PO SCH ×2 (09:00→17:36)
[2018-08-23] MEDS: CEFTRIAXONE SOD 1 GM/NS 50 ML 50 ML IV SCH ×2 (09:47→21:25)
[2018-08-23] MEDS ORDERED: ACETAMINOPHEN 1000 MG/100 ML 100 ML IV ONE (10:30)
[2018-08-23] MEDS ORDERED: KETOROLAC TROMETHAMINE 30 MG/ML VIAL IV PRN (11:45)
[2018-08-23] MEDS ORDERED: ACETAMINOPHEN 650 MG SUPP PR PRN (11:45)
[2018-08-23] MEDS ORDERED: HYDROCODONE/APAP 7.5MG-325MG 1 EA TAB PO PRN (11:45)
[2018-08-23] MEDS ORDERED: ZOLPIDEM TARTRATE 5 MG TAB PO PRN (11:45)
[2018-08-23] MEDS ORDERED: DOCUSATE SODIUM 100 MG CAP PO PRN (11:45)
[2018-08-23] MEDS ORDERED: ONDANSETRON HCL INJ 2MG/ML 2ML 2 MG/ML VIAL IV PRN (11:45)
[2018-08-23] MEDS ORDERED: DIPHENHYDRAMINE HCL INJ 50 MG/ML VIAL IM/IV PRN (11:45)
[2018-08-23] MEDS ORDERED: HYDROCODONE/APAP 5MG-325MG TAB PO PRN (11:45)
[2018-08-23] MEDS ORDERED: PROMETHAZINE HCL (IM) 25 MG/ML VIAL IM PRN (11:45)
[2018-08-23] MEDS ORDERED: FENTANYL CITRATE/PF 100MCG/2 ML INJ ONE ×2 (12:15→19:44)
--- NOTE | 2018-08-23 12:31 | NUR ---
Pt arrived from surgery at this time. Alert and slightly drowsy. Dressing applied over R hip, CDI. Pain at 5/10 upon arrival. IV to L hand, patent, no redness or swelling to insertion site. SCD applied to BLE. Ice pack applied over R hip. Chavez catheter in place, CBI intact clamped at this time per order. Clear urine noted in catheter. Call light within reach, bed lowest position.
[2018-08-23] MEDS: ACETAMINOPHEN 1000 MG/100 ML IV SCH ×2 (12:42→18:15)
[2018-08-23] MEDS: SODIUM CHLORIDE 0.9% 1000ML 1,000 ML IV SCH ×2 (12:50→21:31)
[2018-08-23] MEDS: CEPACOL SORE THROAT LOZENGES PO PRN (14:03)
[2018-08-23] MEDS: CEFAZOLIN SOD 1 GM/NS 50ML 50 ML IV SCH ×2 (14:15→22:45)
[2018-08-23 16:12] VITALS: BP 105/64
[2018-08-23] MEDS: CELECOXIB 100 MG CAP PO SCH (17:36)
--- NOTE | 2018-08-23 17:45 | NUR ---
Pt in bed resting, eating dinner. Chavez bad below bladder, clear urine draining. CBI intact, currently clamped per order. No blood clots in catheter. Nephrostomy tubes/bags observed on back on pt, patent draining yellow urine, no blood clots or hematuria noted. Pt stated pain has subsided from R hip due to pain medication that was administered. IV to L hand, patent, no swelling or redness noted to insertion site. Pt was able to walk with PT today with assistance/walker. Dressing to R hip, CDI. Ice pack to surgical area. Resp WNL. A&O. Call light within reach, bed locked and in lowest position.
[2018-08-23] MEDS ORDERED: ONDANSETRON HCL INJ 2MG/ML 2ML 2 MG/ML VIAL ONE (20:10)
[2018-08-23] MEDS ORDERED: SEVOFLURANE INHAL SOLN 250 ML PEN BTL ONE (20:10)
[2018-08-23] MEDS ORDERED: ACETAMINOPHEN 1000 MG/100 ML IV ONE (20:10)
[2018-08-23] MEDS ORDERED: ROCURONIUM BROMIDE 10 MG/ML 5ML VIAL ONE (20:10)
[2018-08-23] MEDS ORDERED: PROPOFOL IV EMULSION 10 MG/ML 20 ML VIAL ONE (20:10)
[2018-08-23] MEDS ORDERED: DEXAMETHASONE SOD PHOS INJ 4 MG/ML VIAL ONE (20:10)
[2018-08-23] MEDS ORDERED: PHENYLEPHRINE HCL 1% 10 MG/ML VIAL ONE (20:10)
[2018-08-23] MEDS ORDERED: LIDOCAINE HCL 2% LOCAL INJ 5 ML SDV VIAL INJ ONE (20:10)
[2018-08-23 20:19] VITALS: BP 99/55
[2018-08-24] VITALS (8 sets, daily range): BP systolic 102–105; BP diastolic 55–59
[2018-08-24] MEDS: ACETAMINOPHEN 1000 MG/100 ML IV SCH ×2 (05:43)
[2018-08-24] MEDS: CEFAZOLIN SOD 1 GM/NS 50ML 50 ML IV SCH (06:18)
[2018-08-24 06:50] LABS: ANION GAP 8.8 mmol/L (8-16); BLOOD UREA NITROGEN 17 mg/dL (7-26); BUN/CREATININE RATIO 18 (6-25); CALCIUM 8.4 mg/dL (8.4-10.2); CARBON DIOXIDE 28 mmol/L (22-29); CHLORIDE 106 mmol/L (98-107); CREATININE, SERUM 0.92 mg/dL (0.72-1.25); EST GLOMERULAR FILTRATION RATE > 60 ML/MIN (60-); GLUCOSE 100 mg/dL (74-118); POTASSIUM 3.8 mmol/L (3.5-5.1); SODIUM 139 mmol/L (136-145)
--- NOTE | 2018-08-24 07:06 | NUR ---
RECEIVED PATIENT RESTING IN BED. NO ACUTE DISTRESS NOTED. DENIES PAIN OR DISCOMFORT. CALL LIGHT WITHIN REACH. BED IN THE LOWEST POSITION.
--- NOTE | 2018-08-24 07:17 | Diagnostic Imaging Report ---
Date and Time: 08/18/2018 Procedure: Bilateral percutaneous nephroureteral catheter placement head mva reactor operator: Dr. Amador Pre-operative diagnosis: Prostate cancer with bilateral distal ureteral obstruction Post-operative diagnosis: Prostate cancer with bilateral distal ureteral obstruction Conscious Sedation: Versed 2 mg and Fentanyl 100 mcg. The patient's heart rate and pulse oximetry were continuously monitored by the interventional radiology nurse. Blood pressure was monitored at 5 minute intervals. Total intraservice time for sedation: 70 minutes Additional Medications: Lidocaine 1% for local anesthesia Fluoroscopy time: 7.5 minutes Dose-area Product: 2556.5 cGycm2. Contrast used: 20 cc Isovue-300 Estimated blood loss: Less than 10 cc Blood products administered: None Specimens: None Implants: 10.2 Egyptian, 26 cm interloop length nephroureteral catheters x2 Complications: No immediate Condition at completion: Stable Disposition: Returned to ICU DISCUSSION: Informed consent was obtained and documented in the medical record after discussion of risks and benefits of the procedure. The patient was placed in the prone position on the angiographic table. The flanks were prepped and draped in the standard sterile fashion. Attention was first turned to the left kidney. A suitable percutaneous approach to a dilated posterior lower pole calyx was identified by sonography and 1% lidocaine was infiltrated into the skin and subcutaneous tissues for local anesthesia. Then under continuous sonographic guidance, a 21-gauge, 15 cm needle was used to access a dilated, posterior lower pole calyx. A permanent sonographic image was stored. Injection of dilute contrast material confirmed appropriate positioning within the collecting system. A 0.0 1 8-in. wire was then advanced through the needle and into the proximal left ureter. The needle was exchanged for a 6 Egyptian coaxial sheath which was advanced into the midportion of the ureter. The wire was removed and a 4 Egyptian angled catheter and 0.0 3 5-in. Glidewire were advanced through the sheath, and across the stenotic segment of distal ureter, into the urinary bladder. Appropriate position was confirmed by injection of dilute contrast material. A 0.0 3 5-in. Amplatz Super Stiff wire was then advanced through the catheter and coiled within the urinary bladder. The catheter and sheath were then removed and a 10.2 Egyptian, 26 cm interloop length nephroureteral catheter was advanced over the wire. The wire was removed. The distal locking loop was formed in the urinary bladder. The proximal locking loop was formed in the renal pelvis with appropriate positioning confirmed by injection of dilute contrast material. The catheter was secured to the skin with monofilament nylon suture, flushed with sterile saline, and connected to gravity drainage. Attention was then turned to the right kidney. A suitable percutaneous approach to a dilated posterior lower pole calyx was identified by sonography and 1% lidocaine was infiltrated into the skin and subcutaneous tissues for local anesthesia. Then under continuous sonographic guidance, a 21-gauge, 15 cm needle was used to access a dilated, posterior lower pole calyx. A permanent sonographic image was stored. Injection of dilute contrast material confirmed appropriate positioning within the collecting system. A 0.0 1 8-in. wire was then advanced through the needle and into the proximal right ureter. The needle was exchanged for a 6 Egyptian coaxial sheath which was advanced into the midportion of the ureter. The wire was removed and a 4 Egyptian angled catheter and 0.0 3 5-in. Glidewire were advanced through the sheath, and across the stenotic segment of distal ureter, into the urinary bladder. Appropriate position was confirmed by injection of dilute contrast material. A 0.0 3 5-in. Amplatz Super Stiff wire was then advanced through the catheter and coiled within the urinary bladder. The catheter and sheath were then removed and a 10.2 Egyptian, 26 cm interloop length nephroureteral catheter was advanced over the wire. The wire was removed. The distal locking loop was formed in the urinary bladder. The proximal locking loop was formed in the renal pelvis with appropriate positioning confirmed by injection of dilute contrast material. The catheter was secured to the skin with monofilament nylon suture, flushed with sterile saline, and connected to gravity drainage. FINDINGS: Mild bilateral hydronephrosis. Irregular stenotic segments of the distal ureters related to invasive prostate mass. Collapsed urinary bladder with a Chavez catheter retention balloon noted. IMPRESSION: Successful placement of bilateral percutaneous nephroureteral catheters (10.2 Egyptian, 26 cm interloop length) under sonographic and fluoroscopic guidance. Signed by: Dr. Leif Amador M.D. on 08/24/2018 7:14 AM
[2018-08-24 08:02] LABS: BASOPHILS % 0.2 % (0.0-1.0); EOSINOPHILS # (AUTO) 0.3 (0.0-0.4); EOSINOPHILS % 6.6 % (0.0-6.0); HEMOGLOBIN 8.1 g/dL (14.0-18.0); LYMPHOCYTES # (AUTO) 0.9 (1.0-3.2); LYMPHOCYTES % 22.4 % (18.0-39.1); MEAN CORPUSCULAR HEMOGLOBIN 27.5 pg (28-32); MEAN CORPUSCULAR HGB CONC 32.4 g/dL (31-35); MEAN CORPUSCULAR VOLUME 84.7 fL (81-99); MONOCYTES # (AUTO) 0.3 (0.2-0.8); MONOCYTES % 7.6 % (4.4-11.3); NEUTROPHILS # (AUTO) 2.6 (2.1-6.9); NEUTROPHILS % 62.2 % (38.7-80.0); PLATELET COUNT 198 x10e3/uL (140-360); RED BLOOD COUNT 2.95 x10e6/uL (4.3-5.7); RED CELL DISTRIBUTION WIDTH 14.3 % (11.7-14.4)
[2018-08-24] MEDS: CELECOXIB 100 MG CAP PO SCH ×2 (08:21→17:29)
[2018-08-24] MEDS: SENNA-S TABLET PO SCH ×2 (08:21→17:29)
[2018-08-24] MEDS: CEFTRIAXONE SOD 1 GM/NS 50 ML 50 ML IV SCH ×2 (08:21→21:02)
[2018-08-24] MEDS: SODIUM CHLORIDE 0.9% 1000ML 1,000 ML IV SCH (11:35)
[2018-08-24] MEDS ORDERED: ACETAMINOPHEN 1000 MG/100 ML IV PRN (11:45)
--- NOTE | 2018-08-24 12:39 | NUR ---
PT S/P PINNING OF FEMUR 08/23 ORDERS TODAY FOR SNF EVAL
--- NOTE | 2018-08-24 19:13 | NUR ---
REPORT GIVEN TO ONCOMING NURSE, WALKING ROUNDS DONE. PATIENT IS RESTING IN BED. FAMILY AT BEDSIDE. CALL LIGHT WITHIN REACH. BED IN THE LOWEST POSITION.
--- NOTE | 2018-08-24 21:00 | NUR ---
URINE NOTED TO START PINKISH WITH SMALL CLOTS. BLADDER IRRIGATION RESUMED.
[2018-08-25] VITALS (8 sets, daily range): BP systolic 100–135; BP diastolic 54–65
--- NOTE | 2018-08-25 02:04 | NUR ---
CLEAR YELLOW URINE NOTED. BLADDER IRRIGATION STOPPED.
[2018-08-25 06:04] LABS: HEMATOCRIT 23.3 % (38.2-49.6); HEMOGLOBIN 7.7 g/dL (14.0-18.0)
--- NOTE | 2018-08-25 07:08 | NUR ---
RECEIVED PATIENT RESTING IN BED, NO ACUTE DISTRESS NOTED. DENIES PAIN OR DISCOMFORT. CALL LIGHT WITHIN REACH. BED IN THE LOWEST POSITION.
[2018-08-25] MEDS: SENNA-S TABLET PO SCH ×2 (08:36→17:46)
[2018-08-25] MEDS: CEFTRIAXONE SOD 1 GM/NS 50 ML 50 ML IV SCH ×2 (08:36→20:01)
[2018-08-25] MEDS: CELECOXIB 100 MG CAP PO SCH ×2 (08:36→17:46)
--- NOTE | 2018-08-25 09:09 | NUR ---
SPOKE WITH PT ABOUT CHOICE FOR SNF, HE CHOSE [facility] SIGNED CHOICE FILED IN CHART AND FAXED CLINICALS TO [phone]. 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 LET CM KNOW HIS CONCERNS.
--- NOTE | 2018-08-25 10:20 | NUR ---
Pt unavailable at this time. PT working with patient. Will follow up as able. RUPALI BENNETT Supervisor Evaporator Spiritual Care Department O: [phone] Pager: [phone] ([phone] number calling from)
--- NOTE | 2018-08-25 13:38 | NUR ---
IR CALLED TO NOTIFY NURSE THAT THERE IS A POSSIBILITY THAT PATIENT WILL BE SCHEDULED FOR THE BILATERAL STENTS CHANGE FOR TOMORROW BUT MORE THAN LIKELY IT WON'T HAPPEN UNTIL WEDNESDAY. CALLED DR. HAYDEN TO NOTIFY HIM, PER MD "IT PROBABLY WON'T HAPPEN WEDNESDAY BECAUSE PATIENT WILL PROBABLY BE AT SNF. IT IS NOT URGENT, IT SHOULD NOT HOLD PATIENT'S DISCHARGE." NOTIFIED RADIOLOGY.
--- NOTE | 2018-08-25 14:25 | Operative Report ---
DATE OF PROCEDURE: 08/23/2018 SURGEON: Leif Redd MD FORGE PRESS OPERATOR: Vinay Black, Certified PA. PREOPERATIVE DIAGNOSIS: Metastatic cancer involving right proximal femur. POSTOPERATIVE DIAGNOSIS: Metastatic cancer involving right proximal femur. PROCEDURE: Prophylactic intramedullary nail placement, right femur. INDICATIONS: The patient is a 77-year-old gentleman with metastatic prostate cancer. He has a lesion involving the medial aspect of his right proximal femur. He has been unresponsive to traditional chemotherapeutic agents. Fear of the progression of the lesion to cause a pathologic fracture has been explained to the patient. We recommended prophylactic intramedullary nail placement. The risks and benefits were discussed. He stated he understood and wished to proceed. DESCRIPTION OF PROCEDURE: The patient was brought to the operating room and placed under general anesthetic. He received ongoing antibiotic therapy. He was positioned on the fracture table in gentle traction. His right lower extremity was prepped and draped in a sterile manner. A preoperative time-out was performed. A C-arm image intensifier was used to assist throughout the case. A small incision was made proximal to the tip of the greater trochanter. A curved awl was used to enter the proximal femur. A guide pin was placed down the femoral canal. Proper positioning was checked in the AP and lateral planes. The femur was then over-reamed to 13 mm. The proximal reamer was placed. A full-length intramedullary hip screw was placed down the femoral canal. Dense endosteal bone was encountered. The nail was removed and the femur was then reamed up to 14 mm. Even with this reaming, it took quite a bit to get the nail down the femoral canal. This was then locked proximally with a lag screw placed into the femoral head. A distal interlocking screw was placed. Intraoperative x-rays confirmed good positioning of the hardware and no additional fractures. The wounds were irrigated and closed. The deep fascia was closed with 0-Vicryl. The skin was closed with subcuticular Vicryl, Mastisol, and Steri-Strips. A sterile bandage was applied. The patient was extubated and transported to the recovery room in stable condition. Blood losswas less than 50 mL. At the end of the procedure, all needle and sponge counts were correct. Leif Redd MD DR/KATIE /[id number]
--- NOTE | 2018-08-25 17:04 | NUR ---
Nutrition Screen Note RD Recommendation for Physician: - Continue current diet as ordered Plan of Care: RD following, monitoring for tolerance and adequacy Nutrition reason for involvement: Follow up Primary Diagnose(s): Metastatic prostate cancer with bone lesions. PMH: prostate cancer Ht: 73in Wt: 220lb BMI: 29kg/m2 IBW: 184lb RD Assessment: (08/25) Visited pt in the room. Pt reported good appetite with 100% recorded meal intake. No GI complains noted. Current diet is adequate and appropriate. No nutrition intervention warranted at this time. Will revisit if consulted by medical staff. (08/18) Chart reviewed. Labs and meds reviewed. 77yo M, who was admitted for urinary retention. Visited pt in the room. Pt reported good appetite without any GI complains. Pt denied any chewing or swallowing difficulty. Pt also denied any recent weight loss or decreased PO intake COLLECTIONS CURATOR. Will continue to monitor and follow. Current Diet: cardiac diet Malnutrition Evaluation (08/18) The patient does not meet criteria for a specified degree of malnutrition at this time. Will re-evaluate at follow-up as appropriate. Diet Education Needs Assessment: Diet education not indicated. Nutrition Care Level: low Signed: Susannah Herrera, MS, RD, LD
[2018-08-25] MEDS ORDERED: ACETAMINOPHEN 325 MG TAB PO ONE (19:30)
[2018-08-25] MEDS ORDERED: SODIUM CHLORIDE 0.9% 250ML 250 ML IV ONE (19:30)
--- NOTE | 2018-08-25 19:53 | NUR ---
Patient signed consent fo blood transfusion. [address] Flowers.
[2018-08-25] MEDS ORDERED: SODIUM CHLORIDE 0.9% 250ML 250 ML ONE (22:35)
[2018-08-25] MEDS ORDERED: ACETAMINOPHEN 325 MG TAB PO NR (22:45)
--- NOTE | 2018-08-25 23:05 | NUR ---
Patient identification and blood product verification done on bedside with another RN. Tylenol 650 mg p.o. given prior to transfusion.
--- NOTE | 2018-08-25 23:10 | NUR ---
Blood Transfusion started.
[2018-08-26 00:57] VITALS: BP 128/69
[2018-08-26] MEDS: FUROSEMIDE INJ 10 MG/ML 2 ML VIAL IV PRN ×2 (01:20→05:10)
--- NOTE | 2018-08-26 01:21 | NUR ---
1 UNIT PRBC COMPLETED. PATIENT HAS NO COMPLAINS. VITAL SIGNS STABLE. LASIX 20 MG IV GIVEN.
--- NOTE | 2018-08-26 01:30 | NUR ---
Called IR department to confirm if patient will have the procedure for stent change in the morning and if patient needs to be prepared for the procedure.Patient can eat breakfast and will have the consent signed once schedule is confirm according to report from previous shift which was suggested by the day shift IR staff. IR tech stated " If that's what they said, That's what we will do, that schedule is still pending and that photofinishing laboratory worker will decide in the morning if patient will have the procedure or not". die casting supervisor made aware.
--- NOTE | 2018-08-26 02:35 | NUR ---
2nd unit of blood verified with another RN. Vital signs stable. blood transfusion started.
[2018-08-26 04:00] VITALS: BP 138/66
--- NOTE | 2018-08-26 05:10 | NUR ---
blood transfusion completed.
--- NOTE | 2018-08-26 07:00 | NUR ---
RECEIVED AM REPORT FROM NURSE. PT IS AWAKE IN BED, NO S/S OF DISTRESS, NO COMPLAINTS FROM PT AT THIS TIME
[2018-08-26 07:42] LABS: BASOPHILS % 0.4 % (0.0-1.0); EOSINOPHILS # (AUTO) 0.4 (0.0-0.4); EOSINOPHILS % 7.9 % (0.0-6.0); HEMATOCRIT 29.2 % (38.2-49.6); HEMOGLOBIN 9.7 g/dL (14.0-18.0); LYMPHOCYTES # (AUTO) 1.1 (1.0-3.2); LYMPHOCYTES % 22.4 % (18.0-39.1); MEAN CORPUSCULAR HEMOGLOBIN 27.4 pg (28-32); MEAN CORPUSCULAR HGB CONC 33.2 g/dL (31-35); MEAN CORPUSCULAR VOLUME 82.5 fL (81-99); MONOCYTES # (AUTO) 0.3 (0.2-0.8); MONOCYTES % 6.3 % (4.4-11.3); NEUTROPHILS # (AUTO) 3.2 (2.1-6.9); NEUTROPHILS % 62.4 % (38.7-80.0); PLATELET COUNT 173 x10e3/uL (140-360); RED BLOOD COUNT 3.54 x10e6/uL (4.3-5.7); RED CELL DISTRIBUTION WIDTH 14.6 % (11.7-14.4)
[2018-08-26 07:57] LABS: ANION GAP 11.7 mmol/L (8-16); BLOOD UREA NITROGEN 11 mg/dL (7-26); BUN/CREATININE RATIO 13 (6-25); CALCIUM 9.2 mg/dL (8.4-10.2); CARBON DIOXIDE 30 mmol/L (22-29); CHLORIDE 105 mmol/L (98-107); CREATININE, SERUM 0.86 mg/dL (0.72-1.25); EST GLOMERULAR FILTRATION RATE > 60 ML/MIN (60-); GLUCOSE 92 mg/dL (74-118); POTASSIUM 3.7 mmol/L (3.5-5.1); SODIUM 143 mmol/L (136-145)
[2018-08-26 08:00] VITALS: BP 113/61
[2018-08-26 08:31] LABS: FERRITIN 651.99 ng/mL (21.81-274.66)
[2018-08-26 08:43] LABS: FOLATE 17.2 ng/mL (7.0-15.4)
[2018-08-26] MEDS: SENNA-S TABLET PO SCH ×2 (09:19→16:27)
[2018-08-26] MEDS: CELECOXIB 100 MG CAP PO SCH ×2 (09:19→16:27)
[2018-08-26 09:38] VITALS: BP 113/61
[2018-08-26] MEDS: CEFTRIAXONE SOD 1 GM/NS 50 ML 50 ML IV SCH (09:42)
--- NOTE | 2018-08-26 10:30 | NUR ---
THURMAN IRRIGATION DISCONTINUED AND PLUGGED.
[2018-08-26 11:48] VITALS: BP 113/58
[2018-08-26] MEDS ORDERED: CYANOCOBALAMIN INJ 1,000 MCG/ML VIAL IM NR (12:45)
--- NOTE | 2018-08-26 15:00 | NUR ---
REPORT GIVEN TO DOUGIE HUMPHREY AT [facility]. RN REQUESTED PATIENT'S MAR BE FAXED TO NUMBER [phone]. FAX SENT AT [phone].
--- NOTE | 2018-08-26 15:13 | NUR ---
SPOKE WITH MAYNOR AT [facility] ABOUT PT, PT HAS TO BE IN THIS BUILDING T 7AM FOR PROCEDURE ON WEDNESDAY AT 8, THEY WILL FAMILY PRACTICE MD FROM [facility] IN [place] BRING HERE AND THEN AFTER PROCEDURE WILL TAKE BACK TO [facility] TO RETURN FOR SNF.
[2018-08-26 16:06] VITALS: BP 101/59
--- NOTE | 2018-08-26 17:43 | NUR ---
PT WAS TRANSPORTED BY EMS TO [facility] ROOM 309. IV INTACT AND PATENT, THURMAN INTACT AND PATENT. PT LEFT IN STABLE CONDITION
[2018-09-01] MEDS ORDERED: SENOKOT-S TABL1 EACH PO (15:40)
[2018-09-01] MEDS ORDERED: CEPACOL LOZENGE PO (15:40)
[2018-09-01] MEDS ORDERED: CELEBREX100 MG PO (15:40)
[2018-09-01] MEDS ORDERED: NORCO 5-325 TA1 EACH PO (15:40)
[2018-09-01] MEDS ORDERED: ACETAMINOPHEN650 M1 PO (15:40)
[2018-09-01] MEDS ORDERED: ONDANSETRON HCL PO (15:40)
== END 2018-08-26 17:42 | DRG 982 ==
LOC: ER 16:02 → ERHOLD 19:51 → MED/SURG2 21:24 → ICU 08-15 19:32 → MED/SURG3 08-20 21:20
PROVIDERS: ADMIT Internal Medicine; ATTEND Internal Medicine
PROC: 0T9830Z Drainage of Bilateral Ureters with Drainage Device, Percutaneous Approach (ICD-10-PCS; 2018-08-18)
PROC: 0QHB36Z Insertion of Intramedullary Internal Fixation Device into Right Lower Femur, Percutaneous Approach (ICD-10-PCS; principal; 2018-08-23 11:30)
DX: C79.82 Secondary malignant neoplasm of genital organs (principal); M84.551A Pathological fracture in neoplastic disease, right femur, initial encounter for fracture; C79.51 Secondary malignant neoplasm of bone; D62 Acute posthemorrhagic anemia; N17.9 Acute kidney failure, unspecified; M89.9 Disorder of bone, unspecified; R33.9 Retention of urine, unspecified
CPT/HCPCS: 36415; 50433; 51700; 72170; 74018; 74178; 74430; 74470; 76770; 76942; 80048; 80053; 81001; 82607; 82728; 82746; 83540; 83605; 83735; 84466; 85014; 85018; 85025; 85610; 85730; 86850; 86900; 86920; 87086; 88305; 88307; 88311; 88342; 96365; 97139; 99284; C1713; C1769; J0690; J0696; J1100; J1940; J2001; J2250; J2270; J2370; J2405; J3420; J7030; J7040; J7050; P9016; P9017; P9034; Q9967

== ENCOUNTER → 2018-09-01 | Day surgery (SDC) | payer MEDICARE ==
[~2018-09-01] VITALS: Ht 185.4 cm; Wt 94.8 kg
[~2018-09-01] MED LIST: ACETAMINOPHEN650 M1 PO; CELEBREX100 MG PO; CEPACOL LOZENGE PO; CIPRO500 MG PO; FENTANYL CITRATE/PF 100MCG/2 ML INJ ONE; IOPAMIDOL 300MG/ML 100 ML INFUS..BTL IV ONE; LIDOCAINE HCL 2% LOCAL 20 ML VIAL ONE; MIDAZOLAM HCL 2 MG/2 ML VIAL ONE; NORCO 5-325 TA1 EACH PO; ONDANSETRON HCL PO; SENOKOT-S TABL1 EACH PO; SODIUM CHLORIDE 0.9% 1000ML 1,000 ML ONE; ULTRAM 50MG50 MG PO
[2018-09-01 13:55] VITALS: BP 116/78
--- OUTSIDE RECORDS SUMMARY | 2018-09-01 14:01 | XMS REPORT ---
Author Author [facility] Address Unknown Phone Unavailable Care Team Providers Care Inside Tester Name Role Phone VIGNESH CRUZ Unavailable Unavailable Problems This patient has no known problems. Allergies, Adverse Reactions, Alerts This patient has no known allergies or adverse reactions. Medications This patient has no known medications. Results Test Description Test Time Test Comments Text Results Atomic Results Result Comments SPECIAL PROCEDURE IN FIRE AND EXPLOSION INVESTIGATOR 2018-08-24 07:05:00 [place] [address] Patient Name: EMMY AMBRIZ MR #: [id number] : 1940 Age/Sex: 77/M Req #: [id number] Adm Physician: VIGNESH CRUZ MD Ordered by: DAR HAYDEN MD Report #: [id number] Location: [facility]/SURG3 Room/Bed: [facility] Procedure: [id number] IR/SPECIAL PROCEDURE IN FIRE AND EXPLOSION INVESTIGATOR Exam Date: Exam Time: REPORT STATUS: Signed Date and Time: 08/18/2018 Procedure: Bilateral percutaneous nephroureteral catheter placement roll machine operator: Dr. Morris Pre-operative diagnosis: Prostate cancer with bilateral distal ureteral obstruction Post-operative diagnosis: Prostate cancer with bilateral distal ureteral obstruction Conscious Sedation: Versed 2 mg and Fentanyl 100 mcg. The patient's heart rate and pulse oximetry were continuously monitored by the interventional radiology nurse. Blood pressure was monitored at 5 minute intervals. Total intraservice time for sedation: 70 minutes Additional Medications: Lidocaine 1% for local anesthesia Fluoroscopy time: 7.5 minutes Dose-area Product: 2556.5 cGycm2. Contrast used: 20 cc Isovue- 300 Estimated blood loss: Less than 10 cc Blood products administered: None Specimens: None Implants: 10.2 Jordanian, 26 cm interloop length nephroureteral catheters x2 Complications: No immediate Condition at completion: Stable Disposition: Returned to ICU DISCUSSION: Informed consent was obtained and documented in the medical record after discussion of risks and benefits of the procedure. The patient was placed in the prone position on the angiographic table. The flanks were prepped and draped in the standard sterile fashion. Attention was first turned to the left kidney. A suitable percutaneous approach to a dilated posterior lower pole calyx was identified by sonography and 1% lidocaine was infiltrated into the skin and subcutaneous tissues for local anesthesia. Then under continuous sonographic guidance, a 21-gauge, 15 cm needle was used to access a dilated, posterior lower pole calyx. A permanent sonographic image was stored. Injection of dilute contrast material confirmed appropriate positioning within the collecting system. A 0.0 1 8-in. wire was then advanced through the needle and into the proximal left ureter. The needle was exchanged for a 6 Jordanian coaxial sheath which was advanced into the midportion of the ureter. The wire was removed and a 4 Fr ench angled catheter and 0.0 3 5-in. Glidewire were advanced through the sheath, and across the stenotic segment of distal ureter, into the urinary bladder. Appropriate position was confirmed by injection of dilute contrast material. A 0.0 3 5-in. Amplatz Super Stiff wire was then advanced through the catheter and coiled within the urinary bladder. The catheter and sheath were then removed and a 10.2 Jordanian, 26 cm interloop length nephroureteral catheter was advanced over the wire. The wire was removed. The distal locking loop was formed in the urinary bladder. The proximal locking loop was formed in the renal pelvis with appropriate positioning confirmed by injection of dilute contrast material. The catheter was secured to the skin with monofilament nylon suture, flushed with sterile saline, and connected to gravity drainage. Attention was then turned to the right kidney. A suitable percutaneous approach to a dilated posterior lower pole calyx was identified by sonography and 1% lidocaine was infiltrated into the skin and subcutaneous tissues for local anesthesia. Then under continuous sonographic guidance, a 21-gauge, 15 cm needle was used to access a dilated, posterior lower pole calyx. A permanent sonographic image was stored. Injection of dilute contrast material confirmed appropriate positioning within the collecting system. A 0.0 1 8-in. wire was then advanced through the needle and into the proximal right ureter. The needle was exchanged for a 6 Jordanian coaxial sheath which was advanced into the midportion of the ureter. The wire was removed and a 4 Jordanian angled catheter and 0.0 3 5-in. Glidewire were advanced through the sheath, and across the stenotic segment of distal ureter, into the urinary bladder. Appropriate position was confirmed by injection of dilute contrast material. A 0.0 3 5-in. Amplatz Super Stiff wire was then advanced through the catheter and coiled within the urinary bladder. The catheter and sheath were then removed and a 10.2 Jordanian, 26 cm interloop length nephroureteral catheter was advanced over the wire. The wire was removed. The distal locking loop was formed in the urinary bladder. The proximal locking loop was formed in the renal pelvis with appropriate positioning confirmed by injection of dilute contrast material. The catheter was secured to the skin with monofilament nylon suture, flushed with sterile saline, and connected to gravity drainage. FINDINGS: Mild bilateral hydronephrosis. Irregular stenotic segments of the distal ureters related to invasive prostate mass. Collapsed urinary bladder with a Chavez catheter retention balloon noted. IMPRESSION: Successful placement of bilateral percutaneous nephroureteral catheters (10.2 Jordanian, 26 cm interloop length) under sonographic and fluoroscopic guidance. Signed by: Dr. Mychal Morris M.D. on 08/24/2018 7:14 AM Dictated By: MYCHAL MORRIS MD 3 Transcribed By: MANDA on 08/24/18713 COPY TO: DAR HAYDEN MD IR CONSULT 2018-08-24 07:05:00 [place] [address] Patient Name: MEMY AMBRIZ MR #: [id number] : 1940 Age/Sex: 77/M Req #: [id number] Adm Physician: VIGNESH CRUZ MD Ordered by: DAR HAYDEN MD Report #: [id number] Location: MED/SURG3 Room/Bed: [facility] Procedure: [id number] DX/IR CONSULT Exam Date: Exam Time: REPORT STATUS: Signed Date and Time: 08/18/2018 Procedure: Bilateral percutaneous nephroureteral catheter placement roll machine operator: Dr. Morris Pre-operative diagnosis: Prostate cancer with bilateral distal ureteral obstruction Post- operative diagnosis: Prostate cancer with bilateral distal ureteral obstruction Conscious Sedation: Versed 2 mg and Fentanyl 100 mcg. The patient's heart rate and pulse oximetry were continuously monitored by the interventional radiology nurse. Blood pressure was monitored at 5 minute intervals. Total intraservice time for sedation: 70 minutes Additional Medications: Lidocaine 1% for local anesthesia Fluoroscopy time: 7.5 minutes Dose-area Product: 2556.5 cGycm2. Contrast used: 20 cc Isovue-300 Estimated blood loss: Less than 10 cc Blood products administered: None Specimens: None Implants: 10.2 Jordanian, 26 cm interloop length nephroureteral catheters x2 Complications: No immediate Condition at completion: Stable Disposition: Returned to ICU DISCUSSION: Informed consent was obtained and documented in the medical record after discussion of risks and benefits of the procedure. The patient was placed in the prone position on the angiographic table. The flanks were prepped and draped in the standard sterile fashion. Attention was first turned to the left kidney. A suitable percutaneous approach to a dilated posterior lower pole calyx was identified by sonography and 1% lidocaine was infiltrated into the skin and subcutaneous tissues for local anesthesia. Then under continuous sonographic guidance, a 21-gauge, 15 cm needle was used to access a dilated, posterior lower pole calyx. A permanent sonographic image was stored. Injection of dilute contrast material confirmed appropriate positioning within the collecting system. A 0.0 1 8-in. wire was then advanced through the needle and into the proximal left ureter. The needle was exchanged for a 6 Jordanian coaxial sheath which was advanced into the midportion of the ureter. The wire was removed and a 4 Jordanian angled catheter and 0.0 3 5-in. Glidewire were advanced through the sheath, and across the stenotic segment of distal ureter, into the urinary bladder. Appropriate position was confirmed by injection of dilute contrast material. A 0.0 3 5-in. Amplatz Super Stiff wire was then advanced through the catheter and coiled within the urinary bladder. The catheter and sheath were then removed and a 10.2 Jordanian, 26 cm interloop length nephroureteral catheter was advanced over the wire. The wire was removed. The distal locking loop was formed in the urinary bladder. The proximal locking loop was formed in the renal pelvis with appropriate positioning confirmed by injection of dilute contrast material. The catheter was secured to the skin with monofilament nylon suture, flushed with sterile saline, and connected to gravity drainage. Attention was then turned to the right kidney. A suitable percutaneous approach to a dilated posterior lower pole calyx was identified by sonography and 1% lidocaine was infiltrated into the skin and subcutaneous tissues for local anesthesia. Then under continuous sonographic guidance, a 21-gauge, 15 cm needle was used to access a dilated, posterior lower pole calyx. A permanent sonographic image was stored. Injection of dilute contrast material confirmed appropriate positioning within the collecting system. A 0.0 1 8-in. wire was then advanced through the needle and into the proximal right ureter. The needle was exchanged for a 6 Jordanian coaxial sheath which was advanced into the midportion of the ureter. The wire was removed and a 4 Jordanian angled catheter and 0.0 3 5-in. Glidewire were advanced through the sheath, and across the stenotic segment of distal ureter, into the urinary bladder. Appropriate position was confirmed by injection of dilute contrast material. A 0.0 3 5-in. Amplatz Super Stiff wire was then advanced through the catheter and coiled within the urinary bladder. The catheter and sheath were then removed and a 10.2 Jordanian, 26 cm interloop length nephroureteral catheter was advanced over the wire. The wire was removed. The distal locking loop was formed in the urinary bladder. The proximal locking loop was formed in the renal pelvis with appropriate positioning confirmed by injection of dilute contrast material. The catheter was secured to the skin with monofilament nylon suture, flushed with sterile saline, and connected to gravity drainage. FINDINGS: Mild bilateral hydronephrosis. Irregular stenotic segments of the distal ureters related to invasive prostate mass. Collapsed urinary bladder with a Chavez catheter retention balloon noted. IMPRESSION: Successful placement of bilateral percutaneous nephroureteral catheters (10.2 Jordanian, 26 cm interloop length) under sonographic and fluoroscopic guidance. Signed by: Dr. Mychal Morris M.D. on 08/24/2018 7:14 AM Dictated By: MYCHAL MORRIS MD 3 Transcribed By: MANDA on 08/24/18713 COPY TO: DAR HAYDEN MD GUIDANCE FOR PROCEDURE 2018-08-24 07:05:00 [place] [address] Patient Name: EMMY AMBRIZ MR #: [id number] : 1940 Age/Sex: 77/M Req #: [id number] Adm Physician: VIGNESH CRUZ MD Ordered by: DAR HAYDEN MD Report #: [id number] Location: MED/SURG3 Room/Bed: [facility] Procedure: [id number] US/US GUIDANCE FOR PROCEDURE Exam Date: 08/18/18 Exam Time: 8 REPORT STATUS: Signed Date and Time: 08/18/2018 Procedure: Bilateral perc utaneous nephroureteral catheter placement roll machine operator: Dr. Morris Pre-operative diagnosis: Prostate cancer with bilateral distal ureteral obstruction Post-operative diagnosis: Prostate cancer with bilateral distal ureteral obstruction Conscious Sedation: Versed 2 mg and Fentanyl 100 mcg. The patient's heart rate and pulse oximetry were continuously monitored by the interventional radiology nurse. Blood pressure was monitored at 5 minute intervals. Total intraservice time for sedation: 70 minutes Additional Medications: Lidocaine 1% for local anesthesia Fluoroscopy time: 7.5 minutes Dose-area Product: 2556.5 cGycm2. Contrast used: 20 cc Isovue- 300 Estimated blood loss: Less than 10 cc Blood products administered: None Specimens: None Implants: 10.2 Jordanian, 26 cm interloop length nephroureteral catheters x2 Complications: No immediate Condition at completion: Stable Disposition: Returned to ICU DISCUSSION: Informed consent was obtained and documented in the medical record after discussion of risks and benefits of the procedure. The patient was placed in the prone position on the angiographic table. The flanks were prepped and draped in the standard sterile fashion. Attention was first turned to the left kidney. A suitable percutaneous approach to a dilated posterior lower pole calyx was identified by sonography and 1% lidocaine was infiltrated into the skin and subcutaneous tissues for local anesthesia. Then under continuous sonographic guidance, a 21-gauge, 15 cm needle was used to access a dilated, posterior lower pole calyx. A permanent sonographic image was stored. Injection of dilute contrast material confirmed appropriate positioning within the collecting system. A 0.0 1 8-in. wire was then advanced through the needle and into the proximal left ureter. The needle was exchanged for a 6 Jordanian coaxial sheath which was advanced into the midportion of the ureter. The wire was removed and a 4 Jordanian angled catheter and 0.0 3 5-in. Glidewire were advanced through the sheath, and across the stenotic segment of distal ureter, into the urinary bladder. Appropriate position was confirmed by injection of dilute contrast material. A 0.0 3 5-in. Amplatz Super Stiff wire was then advanced through the catheter and coiled within the urinary bladder. The catheter and sheath were then removed and a 10.2 Jordanian, 26 cm interloop length nephroureteral catheter was advanced over the wire. The wire was removed. The distal locking loop was formed in the urinary bladder. The proximal locking loop was formed in the renal pelvis with appropriate positioning confirmed by injection of dilute contrast material. The catheter was secured to the skin with monofilament nylon suture, flushed with sterile saline, and connected to gravity drainage. Attention was then turned to the right kidney. A suitable percutaneous approach to a dilated posterior lower pole calyx was identified by sonography and 1% lidocaine was infiltrated into the skin and subcutaneous tissues for local anesthesia. Then under continuous sonographic guidance, a 21-gauge, 15 cm needle was used to access a dilated, posterior lower pole calyx. A permanent sonographic image was stored. Injection of dilute contrast material confirmed appropriate positioning within the collecting system. A 0.0 1 8-in. wire was then advanced through the needle and into the proximal right ureter. The needle was exchanged for a 6 Jordanian coaxial sheath which was advanced into the midportion of the ureter. The wire was removed and a 4 Jordanian angled catheter and 0.0 3 5-in. Glidewire were advanced through the sheath, and across the stenotic segment of distal ureter, into the urinary bladder. Appropriate posi tion was confirmed by injection of dilute contrast material. A 0.0 3 5-in. Amplatz Super Stiff wire was then advanced through the catheter and coiled within the urinary bladder. The catheter and sheath were then removed and a 10.2 Jordanian, 26 cm interloop length nephroureteral catheter was advanced over the wire. The wire was removed. The distal locking loop was formed in the urinary bladder. The proximal locking loop was formed in the renal pelvis with appropriate positioning confirmed by injection of dilute contrast material. The catheter was secured to the skin with monofilament nylon suture, flushed with sterile saline, and connected to gravity drainage. FINDINGS: Mild bilateral hydronephrosis. Irregular stenotic segments of the distal ureters related to invasive prostate mass. Collapsed urinary bladder with a Chavez catheter retention balloon noted. IMPRESSION: Successful placement of bilateral percutaneous nephroureteral catheters (10.2 Jordanian, 26 cm interloop length) under sonographic and fluoroscopic guidance. Signed by: Dr. Mychal Morris M.D. on 08/24/2018 7:14 AM Dictated By: MYCHAL MORRIS MD 3 Transcribed By: MANDA on 08/24/18713 COPY TO: DAR HAYDEN MD ABDOMEN-1VIEW (KUB) 2018-08-22 09:33:00 [place] [address] Patient Name: EMMY AMBRIZ MR #: [id number] : 1940 Age/Sex: 77/M Req #: [id number] Adm Physician: VIGNESH CRUZ MD Ordered by: DAR HAYDEN MD Report #: [id number] Location: [facility]/SURG3 Room/Bed: [facility] Procedure: [id number] DX/ABDOMEN-1VIEW (KUB) Exam Date: 08/22/18 Exam Time: 914 REPORT STATUS: Signed Exam: KUB - 2 views Clinical History: Document bilateral ureteral stent position. Comparison: CT abdomen/pelvis 08/14/2018 and renal ultrasound 08/18/2018. Findings: There are bilateral percutaneous nephroureteral stents with the proximal pigtails overlying the expected position of the renal pelvises, and the distal pigtails overlying the expected location of the bladder. There is a Chavez catheter in the bladder. No evidence of urinary stone. No evidence of nephrolithiasis. 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 Nonobstructive bowel gas pattern. Impression: Bilateral percutaneous neph roureteral stents as above. Signed by: Dr. Kaycee Epps MD on 08/22/2018 9:38 AM Dictated By: KAYCEE EPPS MD 7 Transcribed By: MANDA on 08/22/18937 COPY TO: DAR HAYDEN MD RENAL RETROPERITONEAL COMP 2018-08-18 08:23:00 [place] [address] Patient Name: EMMY AMBRIZ MR #: [id number] : 1940 Age/Sex: 77/M Req #: [id number] Adm Physician: VIGNESH CRUZ MD Ordered by: DAR HAYDEN MD Report #: [id number] Location: ICU Room/Bed: ICU 194-1 Procedure: [id number] US/US RENAL RETROPERITONEAL COMP Exam Date: 08/18/18 Exam Time: 737 REPORT STATUS: Signed EXAM: US RENAL RETROPERITONEAL COMP DATE: 08/03 12:00 AM INDICATION: ARF. NEVER SAW U/O'S, IF HYDRO, NEEDS PCN/STENT [id number] COMPARISON: CT abdomen/pelvis, 08/14/2018 FINDINGS: Grayscale and color flow Doppler ultrasound of the kidneys and urinary bladder performed. Right kidney: 11.4 x 5.8 x 6.1 cm. Cortical echogenicity normal. Cortical thickness 2.3 cm. The right renal collecting system is dilated. No contour deforming mass. Left kidney: 11.3 x 6.6 x 5.1 cm. Cortical thickness 2.5 cm. Cortical echogenicity normal. The left collecting system is dilated. No contour deforming mass. Urinary bladder: The bladder contains a Chavez catheter and is decompressed. The prostate is enlarged measuring 6.0 x 5.0 x 7.1 cm with a calculated volume of 112 cc IMPRESSION: 1. Mild to moderate bilateral hydronephrosis. No contour deforming renal mass. 2. Urinary bladder contains Chavez catheter and is decompressed. Marked enlargement of the prostate noted. Signed by: Dr. Cee Reyes M.D. on 08/18/2018 8:29 AM Dictated By: CEE REYES MD 8 Transcribed By: MANDA on 08/18/18828 COPY TO: DAR HAYDEN MD FEMUR TWO VIEW MINIMUM RIGHT 2018-08-15 15:20:00 [place] [address] Patient Name: EMMY AMBRIZ MR #: [id number] : 1940 Age/Sex: 77/M Req #: [id number] Adm Physician: VIGNESH CRUZ MD Ordered by: MYCHAL MOLINA MD Report #: [id number] Location: MED/SURG2 Room/Bed: [facility] [place] Procedure: [id number] DX/FEMUR TWO VIEW MINIMUM RIGHT Exam Date: Exam Time: REPORT STATUS: Signed Exam: Pelvis, single frontal view, right femur 2 views History: Leg pain Comparison: CT abdomen and pelvis 08/14/2018 Findings: Pathologic avulsion of the right lesser trochanter is again seen, with 2.8 cm upward retraction. 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 Chavez catheter projects over the pelvis. Distally, the femur is intact without additional displaced fracture or dislocation. No osseous destructive lesions. Degenerative arthrosis of the knee partially visualized. Soft tissues are unremarkable. Impression: Pathologic avulsion injury of the right lesser trochanter with 2.8 cm retraction is seen to better advantage on comparison CT abdomen and pelvis 08/14/2018. Refer to the report for comparison CT for description of additional presumed osseous metastatic lesions. No additional displaced fracture. Signed by: Dr. Mychal Morris M.D. on 08/15/2018 3:25 PM Dictated By: MYCHAL MORRIS MD 1525 Transcribed By: MANDA on 08/15/18 1525 COPY TO: MYCHAL MOLINA MD PELVIS AP 1-2 VIEWS 2018-08-15 15:20:[address] [address] Patient Name: EMMY AMBRIZ MR #: [id number] : 1940 Age/Sex: 77/M Req #: [id number] Adm Physician: VIGNESH CRUZ MD Ordered by: MYCHAL MOLINA MD Report #: [id number] Location: MED/SURG2 Room/Bed: [facility] [place] Procedure: [id number] DX/PELVIS AP 1-2 VIEWS Exam Date: 08/15/18 Exam Time: 1445 REPORT STATUS: Signed Exam: Pelvis, single frontal view, right femur 2 views History: Leg pain Comparison: CT abdomen and pelvis 08/14/2018 Findings: Pathologic avulsion of the right lesser trochanter is again seen, with 2.8 cm upward retraction. 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 Chavez catheter projects over the pelvis. Distally, the femur is intact without additional displaced fracture or dislocation. No osseous destructive lesions. Degenerative arthrosis of the knee partially visualized. Soft tissues are unremarkable. Impression: Pathologic avulsion injury of the right lesser trochanter with 2.8 cm retraction is seen to better advantage on comparison CT abdomen and pelvis 08/14/2018. Refer to the report for comparison CT for description of additional presumed osseous metastatic lesions. No additional displaced fracture. Signed by: Dr. Mychal Morris M.D. on 08/15/2018 3:25 PM Dictated By: MYCHAL MORRIS MD 1525 Transcribed By: MANDA on 08/15/18 1525 COPY TO: MYCHAL MOLINA MD CT ABDOMEN/PELVIS WOW 2018-08-15 07:02:00 [place] [address] Patient Name: EMMY AMBRIZ MR #: [id number] : 1940 Age/Sex: 77/M Req #: [id number] Adm Physician: VIGNESH CRUZ MD Ordered by: DAR HAYDEN MD Report #: [id number] Location: [facility]/SURG2 Room/Bed: [facility] [place] Procedure: CT/CT ABDOMEN/PELVIS WOW Exam Date: 08/14/18 Exam Time: 1445 REPORT STATUS: Signed EXAMINATION: CT of the abdomen and pelvis with contrast. TECHNIQUE: Spiral CT images of the abdomen and pelvis were performed from the lung bases to the lesser trochanters before and after the intravenous administration of 100 cc Isovue-370 per hematuria protocol. Coronal and sagittal reformatted images were obtained. COMPARISON: None. CLINICAL HISTORY:Hematuria, prostate cancer, anemia DISCUSSION: ABDOMEN/PELVIS: LOWER THORAX:Subsegmental atelectasis in the dependent lower lobes. Slight granuloma right lower lobe. HEPATOBILIARY: Subcentimeter hypoattenuating lesion in segment 4A, too small to further josé antonio acterize but likely represent a small cyst. No additional focal hepatic lesion. No intrahepatic biliary dilatation. Gallbladder is unremarkable. SPLEEN: No splenomegaly. PANCREAS: No focal masses or ductal dilatation. ADRENALS: No adrenal nodules. KIDNEYS/URETERS: Mild bilateral hydronephrosis. 1.8 cm simple cyst in the right kidney. 1.8 cm simple cyst in the left kidney. Additional subcentimeter hypoattenuating lesions, too small to further characterize, within both kidneys, likely to represent additional small cysts. Noncontrast images show no calculi in the upper collecting systems or ureters. Urographic phase images show no filling defects in the visualized segments of the ureters. The distal third of the left ureter are poorly opacified, likely related to timing of acquisition. PELVIC ORGANS/BLADDER: The retention balloon of a Chavez catheter lies within the urinary bladder. Surrounding the retention balloon and occupying the majority of the urinary bladder is a large ill-defined hyperattenuating focus without enhancement on urographic images compatible with clot. The prostate is markedly enlarged, measuring approximately 8.2 cm AP x 8 cm transverse, with invasion of the left posterior-lateral wall of the urinary bladder exemplified on series 6 image 151. The seminal vesicles are not discretely identified. PERITONEUM/RETROPERITONEUM: No free air or fluid. LYMPH NODES: The above- described prostate mass is contiguous with a conglomerate of left pelvic sidewall/iliac chain lymph nodes measuring approximately 8 cm AP x 3 cm transverse in aggregate (series 6 image 126). metastatic right iliac chain lymphadenopathy measures 3.3 cm AP x 1.8 cm transverse. Retroperitoneal lymphadenopathy extends above the level of the renal veins with insurance claims representative lymph nodes measuring 1.4 cm short axis seen on series 6 image 53 and 3.6 cm AP x 2.4 cm transverse (series 6 image 67). Multiple enlarged aortocaval, retrocaval, and periaortic lymph nodes are also noted. The most superior enlarged lymph node is preaortic just inferior to the origin of the SMA, and measures 1.5 cm short axis as seen on series 6 image 53. VESSELS: Abdominal aorta, major branch vessels, and iliac arterial systems are patent. Portal vein, splenic vein, and central superior mesenteric vein are patent. GI TRACT: The large bowel shows no evidence of distention or wall thickening. Gas and fecal material are noted throughout. The appendix is normal. BONES AND SOFT TISSUE: Age indeterminant pathologic avulsion fracture of the right lesser trochanter with underlying 1.9 cm lytic lesion at the donor site of the femur (series 6 image 189). 1.5 cm lytic lesion in the right initial tuberosity (series 6 image 177). 1.5 cm lytic lesion in the left ilium adjacent to the SI joint. 2 cm lesion in the right ilium adjacent to the SI joint. Additional subcentimeter lytic lesions along the right iliac crest (series 6 image 108). Scattered lytic lesions of the axial skeleton involving the right lamina of L5 (series 6 image 100), the left transverse process of L2, the L1 vertebral body with pathologic mild anterior compression fracture, and the posterior aspect of the T9 vertebral body with extension to the pedicles as well as the partially visualized anterior aspect of the T8 vertebral body. IMPRESSION: Large (8 cm) mass originating in the prostate invades the left posterolateral urinary bladder wall and results in mild bilateral hydronephrosis. Large amount of blood clot within the urinary bladder adjacent to the retention balloon of an appropriately positioned Chavez catheter. Metastatic lymphadenopathy involves the left greater than right iliac chains and retroperitoneum, extending cranial to the level of the renal veins. Widespread osseous metastases as above, with age indeterminant pathologic avulsion injury of the right lesser trochanter and mild anterior compression f racture of L1. Signed by: Dr. Mychal Morris M.D. on 08/15/2018 7:24 AM Dictated By: MYCHAL MORRIS MD 3 Transcribed By: MANDA on 08/15/18723 COPY TO: DAR HAYDEN MD
--- NOTE | 2018-09-01 18:25 | NUR ---
Report provided to Karina at [facility], review of procedural findings and medications given. Patient alert and oriented. maintains airway and room air saturations of 98-99%. No gross issues of pressure, pain, pallor or dysrhythmia. IV site DC'd from right area. patient hemodynamically stable with hemostasis bilateral flank dressing CDI w/o s/s of bleeding. patient transferred to EMS stretcher. notifed at [phone]. review of orders and sending 2 uroseal bags. - f procedure: bilateral ureteral stent transition from nephrostomy stent w/ bilateral nephrostomy janette outlets. Meds Given Intra-Procedure Sedatives Versed - 1 mg Fentanyl - 50 mcg Fluids Input - 150ml Output - 300 ml Contrast Isovue 300 - 15ml
--- NOTE | 2018-09-05 08:54 | Diagnostic Imaging Report ---
Procedure: 1) Bilateral percutaneous nephroureteral catheter to internal ureteral stent conversion with fluoroscopic guidance 2) Placement of bilateral safety percutaneous nephrostomy catheters with fluoroscopic guidance speed operator: Dr. Tatiana Brito Pre-operative diagnosis: Prostate cancer with bilateral distal ureteral obstruction Post-operative diagnosis: Prostate cancer with bilateral distal ureteral obstruction Conscious Sedation: Please see nursing administration records for details of Fentanyl and Versed conscious sedation administered. The patient's heart rate and pulse oximetry were continuously monitored by the interventional radiology nurse. Blood pressure was monitored at 5 minute intervals. Additional Medications: Lidocaine 1% for local anesthesia Fluoroscopy time: 3.3 minutes Dose-area Product: 903 cGycm2. Estimated blood loss: Minimal Specimens: Bilateral PCNU catheters Implants: Bilateral 8.5 Fr x 24 cm Amplatz internal ureteral stents, Bilateral 8 Fr Giraldo Vega PCN catheters TECHNIQUE/FINDINGS: Informed consent for the procedure was obtained from the patient and documented in the medical record after discussion of risks and benefits. The patient was placed in the prone position on the angiographic table. The bilateral flanks were prepped and draped in the standard sterile fashion. Preliminary hide shaker image demonstrated bilateral percutaneous nephroureteral catheters with confirmation with contrast injection under fluoroscopic guidance. A Chavez catheter is also noted. Subsequently, 1% lidocaine was infiltrated into the skin and subcutaneous tissues of bilateral flank sites for local anesthesia. An Amplatz wire was inserted into the left PCNU catheter and positioning was secured into the bladder. The existing PCNU catheter was removed. Over the wire, a 8.5 Fr x 24 cm Amplatz ureteral stent was advanced. With the proximal and distal markers positioned appropriately, the inner catheter was removed and subsequently the wire was removed. The distal pigtail formed in the bladder. The proximal pigtail did not form however the proximal aspect of the catheter was appropriately positioned in the renal pelvis/lower calyx. The string attached to the ureteral catheter was removed. Subsequently, over the safety Amplatz wire, we advanced an 8 Fr DM nephrostomy catheter. The pigtail was formed in the left renal pelvis. Contrast injection with fluoroscopy confirmed positioning. Subsequently, an Amplatz wire was inserted into the right PCNU catheter and positioning was secured into the bladder. The existing PCNU catheter was removed. Over the wire, a 8.5 Fr x 24 cm Amplatz ureteral stent was advanced. With the proximal and distal markers positioned appropriately, the inner catheter was removed and subsequently the wire was removed. The distal pigtail formed in the bladder and the proximal pigtail formed in the renal pelvis. The string attached to the ureteral catheter was removed. Subsequently, over the safety Amplatz wire, we advanced an 8 Fr DM nephrostomy catheter. The pigtail was formed in the right renal pelvis. Contrast injection with fluoroscopy confirmed positioning. The bilateral safety PCNs were capped. The catheters were secured to the skin with monofilament nylon suture and a sterile dressing was applied. The patient tolerated the procedure well without immediate complication. IMPRESSION: Bilateral percutaneous nephroureteral catheter to internal ureteral stent conversion and safety PCN placement with fluoroscopic guidance as above. PLAN: Continue to leave bilateral safety PCNs capped. If the patient develops fever, flank pain, or lack of urine output, then instructed to connect the catheters to baggage drainage. Safety PCN removal and further stent exchanges/plan per Urology team. Signed by: Dr. Tatiana Brito MD on 09/05/2018 8:50 AM
== END | disposition home or self-care (01) ==
LOC: EDSTATUS 08-30 08:00 → CATH LAB 14:00
PROVIDERS: ATTEND Radiology Diagnostic Radiology
DX: C61 Malignant neoplasm of prostate (principal); N13.5 Crossing vessel and stricture of ureter without hydronephrosis
CPT/HCPCS: 50693; C1769; C2625; J2001; J2250; J7030; Q9967

== ENCOUNTER → 2018-09-05 | Day surgery (SDC) | payer MEDICARE ==
[~2018-09-05] VITALS: Ht 185.4 cm; Wt 94.8 kg
[~2018-09-05] MED LIST changes: -FENTANYL CITRATE/PF 100MCG/2 ML INJ ONE; +FLORADIX PO; +HYDROCODON-ACE1 EA11 PO; -IOPAMIDOL 300MG/ML 100 ML INFUS..BTL IV ONE; -MIDAZOLAM HCL 2 MG/2 ML VIAL ONE; -SODIUM CHLORIDE 0.9% 1000ML 1,000 ML ONE; +SODIUM CHLORIDE 0.9% 500ML 500 ML ONE; +ULTRAM50 MG PO
[2018-09-05 11:50] VITALS: BP 112/69
--- NOTE | 2018-09-08 07:48 | Diagnostic Imaging Report ---
Procedure: Bilateral percutaneous nephrostomy catheter injection (antegrade nephrostograms) with catheter removal. yarder operator: Dr. Tatiana Brito Pre-operative diagnosis: Prostate cancer with bilateral distal ureteral obstruction Post-operative diagnosis: Prostate cancer with bilateral distal ureteral obstruction Conscious Sedation: None. The patient's heart rate and pulse oximetry were continuously monitored by the interventional radiology nurse. Blood pressure was monitored at 5 minute intervals. Additional Medications: None. Fluoroscopy time: 0.6 minutes Dose-area Product: 209.4 cGycm2. Estimated blood loss: Minimal Specimens: Bilateral 8 Fr DM PCN catheters. Implants: None. TECHNIQUE/FINDINGS: Informed consent for the procedure was obtained from the patient and documented in the medical record after discussion of risks and benefits. The patient was placed in the prone position on the angiographic table. The bilateral flanks were prepped and draped in the standard sterile fashion. Preliminary mass communications instructor image demonstrated bilateral percutaneous nephrostomy catheters and internal ureteral stents in satisfactory position. A Chavez catheter is also noted. Contrast was injected into the bilateral percutaneous nephrostomy catheters. This demonstrated passage of contrast into the bladder. No evidence of hydronephrosis. Given satisfactory functioning of the ureteral stents, bilateral safety PCNs were removed. The patient tolerated the procedure well without immediate complication. IMPRESSION: Antegrade nephrostograms demonstrating free flow of contrast into the bladder, no hydronephrosis, and satisfactory positioning of bilateral internal ureteral stents. Both safety PCNs were removed. Signed by: Dr. Tatiana Brito MD on 09/08/2018 7:44 AM
== END | disposition home or self-care (01) ==
LOC: CATH LAB 11:30 → EDSTATUS 14:00
PROVIDERS: ATTEND Urology
DX: C61 Malignant neoplasm of prostate (principal); N13.5 Crossing vessel and stricture of ureter without hydronephrosis; R33.9 Retention of urine, unspecified; K59.00 Constipation, unspecified; R11.0 Nausea
CPT/HCPCS: 50389; 74425; J2001; J7040

== ENCOUNTER 2018-09-26 12:38 | Inpatient (IN) | payer MEDICARE, OTHER ==
[~2018-09-26] VITALS: Ht 185.4 cm; Wt 97.3 kg
[~2018-09-26 12:38] MED LIST changes: -FLORADIX PO; -HYDROCODON-ACE1 EA11 PO; -LIDOCAINE HCL 2% LOCAL 20 ML VIAL ONE; -SODIUM CHLORIDE 0.9% 500ML 500 ML ONE; -ULTRAM50 MG PO
[2018-09-26] MEDS ORDERED: CEFTRIAXONE SOD 1 GM/NS 50 ML 50 ML IV ONE (13:30)
[2018-09-26] MEDS ORDERED: MEROPENEM 1GM 100 ML IV ONE (13:33)
[2018-09-26 13:45] LABS: BILIRUBIN,URINE SMALL (NEGATIVE); CLARITY,URINE CLOUDY (CLEAR); COLOR,URINE BROWN (YELLOW); KETONES,URINE TRACE (NEGATIVE); LEUKOCYTE ESTERASE ,URINE MODERATE (NEGATIVE); NITRITE,URINE POSITIVE (NEGATIVE); URINE UROBILINOGEN 1 mg/dL (0.2 - 1)
[2018-09-26 13:47] LABS: PROTEIN,URINE DIPSTICK 3+ (NEGATIVE)
[2018-09-26 13:54] LABS: BASOPHILS % 0.2 % (0.0-1.0); EOSINOPHILS # (AUTO) 0.4 (0.0-0.4); EOSINOPHILS % 6.5 % (0.0-6.0); HEMATOCRIT 23.8 % (38.2-49.6); HEMOGLOBIN 7.6 g/dL (14.0-18.0); LYMPHOCYTES # (AUTO) 1.2 (1.0-3.2); MEAN CORPUSCULAR HEMOGLOBIN 26.7 pg (28-32); MEAN CORPUSCULAR HGB CONC 31.9 g/dL (31-35); MEAN CORPUSCULAR VOLUME 83.5 fL (81-99); MONOCYTES # (AUTO) 0.6 (0.2-0.8); MONOCYTES % 9.6 % (4.4-11.3); NEUTROPHILS # (AUTO) 3.5 (2.1-6.9); NEUTROPHILS % 61.1 % (38.7-80.0); PLATELET COUNT 134 x10e3/uL (140-360); RED BLOOD COUNT 2.85 x10e6/uL (4.3-5.7); RED CELL DISTRIBUTION WIDTH 14.9 % (11.7-14.4)
[2018-09-26] MEDS ORDERED: SODIUM CHLORIDE 0.9% 250ML 250 ML IV ONE (14:15)
[2018-09-26] MEDS ORDERED: FUROSEMIDE INJ 10 MG/ML 2 ML VIAL IV ONE (14:15)
[2018-09-26 14:18] LABS: BACTERIA,URINE MODERATE /HPF; EPITHELIAL CELLS,URINE FEW /LPF; WBC,URINE (MAN) 21-50 /HPF (0-5); YEAST,URINE FEW
--- NOTE | 2018-09-26 14:45 | Diagnostic Imaging Report ---
Exam: Abdominal film Clinical History: Check stent placements, leaking Chavez catheter Comparison: Images from fluoroscopic ureteral stent placement 09/01/2018 and antegrade nephrostograms 09/05/2018 DISCUSSION: Bilateral internal ureteral stents are noted. The proximal locking loops project over the expected regions of the renal pelves. No calcifications project over the renal shadows or along side the ureteral stents. The distal locking loops project over the expected region of the urinary bladder. Bowel gas pattern is nonobstructive. Regional skeletal structures are intact. Age indeterminate compression deformity of L1 is unchanged. IMPRESSION: Bilateral internal ureteral stents appear stable and appropriately positioned relative to images from nephrostogram performed 09/05/2018. Nonobstructive bowel gas pattern. Signed by: Dr. Leif Amador M.D. on 09/26/2018 2:42 PM
[2018-09-26 14:59] LABS: ALANINE AMINOTRANSFERASE 13 IU/L (0-55); ALBUMIN 3.1 g/dL (3.5-5.0); ALBUMIN/GLOBULIN RATIO 0.9 (0.8-2.0); ALKALINE PHOSPHATASE 88 IU/L (40-150); ANION GAP 14.1 mmol/L (8-16); BLOOD UREA NITROGEN 30 mg/dL (7-26); BUN/CREATININE RATIO 23 (6-25); CALCIUM 10.1 mg/dL (8.4-10.2); CARBON DIOXIDE 26 mmol/L (22-29); CHLORIDE 104 mmol/L (98-107); EST GLOMERULAR FILTRATION RATE > 60 ML/MIN (60-); GLUCOSE 102 mg/dL (74-118); POTASSIUM 4.1 mmol/L (3.5-5.1); SODIUM 140 mmol/L (136-145)
--- NOTE | 2018-09-26 15:11 | NUR ---
consent for blood transfusion signed and placed into chart.
[2018-09-26] MEDS ORDERED: SODIUM CHLORIDE FLUSH 10 ML SYR INJ PRN (15:15)
[2018-09-26] MEDS ORDERED: ONDANSETRON HCL INJ 2MG/ML 2ML 2 MG/ML VIAL IV PRN (15:15)
[2018-09-26] MEDS ORDERED: MORPHINE SULFATE 2 MG/ML SYR 1ML IV PRN (15:15)
[2018-09-26] MEDS ORDERED: MORPHINE SULFATE INJ 4 MG/ML INJ 1ML IV PRN (15:30)
--- NOTE | 2018-09-26 16:15 | NUR ---
report received from George, patient to arrive to unit via stretcher alert and oriented with at bedside.
[2018-09-26 16:52] VITALS: BP 134/64
[2018-09-26 17:05] VITALS: BP 134/64
--- NOTE | 2018-09-26 19:48 | NUR ---
RECEIVED PT IN BED AOX3 RESPIRATIONS ARE EVEN AND UNLABORED .CALL LIGHT WITH IN REACH . ORDER TO TRANSFUSE 2 UNIT OF BLOOD .CONTINUE TO MONITOR
[2018-09-26 19:52] VITALS: BP 134/64
[2018-09-26 20:47] VITALS: BP 117/89
[2018-09-26] MEDS: MEROPENEM 1GM 100 ML IV SCH (20:59)
--- NOTE | 2018-09-26 21:55 | NUR ---
PT IS TRANSFERRED TO 107 AND REPORT GIVEN TO 107 NURSE .PT IS STABLE AND DENIES PAIN
--- NOTE | 2018-09-26 22:00 | NUR ---
Received patient from OBS via wheelchair. AAOX3 and amb with assist. No resp distress at this time. Denies pain. Son at bedside. Call light within reach and instructed to call for assistance. Bed alarm refused.
[2018-09-26] MEDS ORDERED: SODIUM CHLORIDE 0.9% 250ML 250 ML ONE (23:22)
[2018-09-26 23:30] VITALS: BP 135/61
[2018-09-26 23:44] VITALS: BP 124/59
[2018-09-27] VITALS (8 sets, daily range): BP systolic 108–128; BP diastolic 58–71
[2018-09-27] MEDS ORDERED: FUROSEMIDE INJ 10 MG/ML 4 ML VIAL ONE (02:56)
[2018-09-27] MEDS ORDERED: SODIUM CHLORIDE 0.9% 250ML 250 ML ONE (03:08)
--- NOTE | 2018-09-27 07:27 | NUR ---
pt sitting at bedside resp even and unlabored this time no distress noted, pt able to make needs known, no c/o pain when asked, call light in reach.
[2018-09-27] MEDS: MEROPENEM 1GM 100 ML IV SCH ×2 (08:31→21:31)
[2018-09-27 08:48] LABS: ALANINE AMINOTRANSFERASE 14 IU/L (0-55); ALBUMIN 3.2 g/dL (3.5-5.0); ALBUMIN/GLOBULIN RATIO 0.8 (0.8-2.0); ALKALINE PHOSPHATASE 95 IU/L (40-150); ANION GAP 14.9 mmol/L (8-16); BLOOD UREA NITROGEN 18 mg/dL (7-26); BUN/CREATININE RATIO 17 (6-25); CALCIUM 10.7 mg/dL (8.4-10.2); CARBON DIOXIDE 26 mmol/L (22-29); CHLORIDE 101 mmol/L (98-107); CREATININE, SERUM 1.06 mg/dL (0.72-1.25); EST GLOMERULAR FILTRATION RATE > 60 ML/MIN (60-); GLUCOSE 104 mg/dL (74-118); POTASSIUM 3.9 mmol/L (3.5-5.1); SODIUM 138 mmol/L (136-145)
[2018-09-27] MEDS ORDERED: SODIUM CHLORIDE 0.9% 100 ML 100 ML ONE (09:17)
[2018-09-27 09:45] LABS: BASOPHILS % 0.3 % (0.0-1.0); EOSINOPHILS # (AUTO) 0.3 (0.0-0.4); EOSINOPHILS % 4.7 % (0.0-6.0); HEMATOCRIT 33.7 % (38.2-49.6); HEMOGLOBIN 11.2 g/dL (14.0-18.0); LYMPHOCYTES # (AUTO) 1.2 (1.0-3.2); LYMPHOCYTES % 17.6 % (18.0-39.1); MEAN CORPUSCULAR HEMOGLOBIN 26.8 pg (28-32); MEAN CORPUSCULAR HGB CONC 33.2 g/dL (31-35); MEAN CORPUSCULAR VOLUME 80.6 fL (81-99); MONOCYTES # (AUTO) 0.5 (0.2-0.8); MONOCYTES % 6.6 % (4.4-11.3); NEUTROPHILS # (AUTO) 4.7 (2.1-6.9); NEUTROPHILS % 69.3 % (38.7-80.0); PLATELET COUNT 154 x10e3/uL (140-360); RED BLOOD COUNT 4.18 x10e6/uL (4.3-5.7); RED CELL DISTRIBUTION WIDTH 15.6 % (11.7-14.4)
--- NOTE | 2018-09-27 10:50 | NUR ---
Visit made by the Spiritual Care Department Pastoral Visitor, Caren Allison. PV provided pastoral presence, prayer, hospitality, and supportive listening. Pastoral Visitor informed pt/family of the scope of Event Coordinator Marketing [employer] Services and availability. RUPALI BENNETT Bicycle Designer Spiritual Care Department O: [phone] Pager: [phone] ([phone] number calling from)
--- NOTE | 2018-09-27 19:00 | NUR ---
Received patient in bed in no acute distress, patient is alert and oriented, safety and fall precautions maintained as per hospital protocol: bed in lowest position and locked, needed items beside bed and call ayala placed close to patient, patient is currently stable, will continue to monitor.
--- NOTE | 2018-09-27 19:22 | NUR ---
REPORT GIVEN TO ONCOMING NURSE, PT STABLE AT THIS TIME.
[2018-09-28 04:00] VITALS: BP 119/60
[2018-09-28 06:03] LABS: BASOPHILS % 0.5 % (0.0-1.0); EOSINOPHILS # (AUTO) 0.4 (0.0-0.4); EOSINOPHILS % 6.3 % (0.0-6.0); LYMPHOCYTES # (AUTO) 1.3 (1.0-3.2); LYMPHOCYTES % 21.9 % (18.0-39.1); MEAN CORPUSCULAR HEMOGLOBIN 26.7 pg (28-32); MEAN CORPUSCULAR HGB CONC 33.3 g/dL (31-35); MONOCYTES # (AUTO) 0.5 (0.2-0.8); MONOCYTES % 8.3 % (4.4-11.3); NEUTROPHILS # (AUTO) 3.7 (2.1-6.9); NEUTROPHILS % 61.5 % (38.7-80.0); PLATELET COUNT 139 x10e3/uL (140-360); RED BLOOD COUNT 3.75 x10e6/uL (4.3-5.7); RED CELL DISTRIBUTION WIDTH 15.5 % (11.7-14.4)
[2018-09-28 06:37] LABS: ANION GAP 13.6 mmol/L (8-16); BLOOD UREA NITROGEN 17 mg/dL (7-26); BUN/CREATININE RATIO 18 (6-25); CALCIUM 10.5 mg/dL (8.4-10.2); CARBON DIOXIDE 27 mmol/L (22-29); CHLORIDE 103 mmol/L (98-107); CREATININE, SERUM 0.95 mg/dL (0.72-1.25); EST GLOMERULAR FILTRATION RATE > 60 ML/MIN (60-); GLUCOSE 103 mg/dL (74-118); POTASSIUM 3.6 mmol/L (3.5-5.1); SODIUM 140 mmol/L (136-145)
--- NOTE | 2018-09-28 06:55 | NUR ---
Patient condition throughout the night was stable, patient endorsed to next shift for continuity of care.
--- NOTE | 2018-09-28 07:15 | NUR ---
ESBL of the urine, Dr. Alvarez called and message left on his phone. Patient placed on isolation.
[2018-09-28] MEDS: MEROPENEM 1GM 100 ML IV SCH (08:33)
[2018-09-28 09:20] VITALS: BP 121/63
[2018-09-28 09:47] VITALS: BP 121/63
[2018-09-28 09:51] VITALS: BP 121/63
[2018-09-28 12:13] VITALS: BP 106/60
[2018-09-28] MEDS ORDERED: CIPRO500 MG PO (13:36)
[2018-09-28] MEDS ORDERED: ONDANSETRON HCL 4 MG ORAL DISINTEGRATING TAB PO PRN (14:30)
== END 2018-09-28 15:35 | disposition home or self-care (01) | DRG 699 ==
LOC: ER 12:38 → ERHOLD 15:15 → IMCU 16:42 → OBSVTOIN 18:47 → MED/SURG 21:45
PROVIDERS: ADMIT Internal Medicine; ATTEND Internal Medicine
PROC: 30233N0 Transfusion of Autologous Red Blood Cells into Peripheral Vein, Percutaneous Approach (ICD-10-PCS; principal; 2018-09-26)
DX: T83.511A Infection and inflammatory reaction due to indwelling urethral catheter, initial encounter (principal); N30.00 Acute cystitis without hematuria; N17.9 Acute kidney failure, unspecified; N34.2 Other urethritis; C61 Malignant neoplasm of prostate; D63.0 Anemia in neoplastic disease; E66.9 Obesity, unspecified; Z68.28 Body mass index [BMI] 28.0-28.9, adult
CPT/HCPCS: 36415; 74018; 80048; 80053; 81001; 85025; 86850; 86900; 86920; 87071; 87086; 87186; 87205; 99284; J1940; J7050; P9016

== ENCOUNTER 2018-10-14 23:34 | Emergency (ER) | payer MEDICARE, OTHER ==
[~2018-10-14] VITALS: Ht 185.4 cm; Wt 97.1 kg
[2018-10-15 00:13] LABS: BASOPHILS % 0.2 % (0.0-1.0); EOSINOPHILS # (AUTO) 0.2 (0.0-0.4); EOSINOPHILS % 4.5 % (0.0-6.0); HEMOGLOBIN 8.8 g/dL (14.0-18.0); LYMPHOCYTES # (AUTO) 1.4 (1.0-3.2); LYMPHOCYTES % 26.3 % (18.0-39.1); MEAN CORPUSCULAR HEMOGLOBIN 25.9 pg (28-32); MEAN CORPUSCULAR HGB CONC 31.4 g/dL (31-35); MEAN CORPUSCULAR VOLUME 82.4 fL (81-99); MONOCYTES # (AUTO) 0.5 (0.2-0.8); MONOCYTES % 8.3 % (4.4-11.3); NEUTROPHILS # (AUTO) 3.2 (2.1-6.9); NEUTROPHILS % 59.2 % (38.7-80.0); PLATELET COUNT 159 x10e3/uL (140-360); RED CELL DISTRIBUTION WIDTH 15.5 % (11.7-14.4)
[2018-10-15 00:18] LABS: BILIRUBIN,URINE SMALL (NEGATIVE); CLARITY,URINE TURBID (CLEAR); COLOR,URINE RED (YELLOW); KETONES,URINE NEGATIVE (NEGATIVE); LEUKOCYTE ESTERASE ,URINE MODERATE (NEGATIVE); NITRITE,URINE NEGATIVE (NEGATIVE); URINE UROBILINOGEN 0.2 mg/dL (0.2 - 1)
[2018-10-15 00:22] LABS: PROTEIN,URINE DIPSTICK 3+ (NEGATIVE)
[2018-10-15 00:26] LABS: ALBUMIN 3.1 g/dL (3.5-5.0); ALBUMIN/GLOBULIN RATIO 0.8 (0.8-2.0); ANION GAP 15.9 mmol/L (8-16); CALCIUM 12.2 mg/dL (8.4-10.2); CREATININE, SERUM 1.4 mg/dL (0.72-1.25); POTASSIUM 3.9 mmol/L (3.5-5.1)
[2018-10-15 00:40] LABS: BACTERIA,URINE MANY /HPF; RBC,URINE >50 /HPF (0-5); WBC,URINE (MAN) >50 /HPF (0-5)
[2018-10-15 00:41] LABS: EPITHELIAL CELLS,URINE FEW /LPF
[2018-10-15] MEDS ORDERED: SODIUM CHLORIDE 0.9% 1000ML 1,000 ML IV SCH (00:45)
[2018-10-15] MEDS ORDERED: ONDANSETRON HCL INJ 2MG/ML 2ML 2 MG/ML VIAL IV PRN (00:45)
[2018-10-15] MEDS ORDERED: MORPHINE SULFATE INJ 4 MG/ML INJ 1ML IV PRN (00:45)
[2018-10-15] MEDS ORDERED: LEVOFLOXACIN 750MG/D5W 150ML 150 ML IV STA (00:48)
[2018-10-15] MEDS ORDERED: CEFTRIAXONE SOD 1 GM/NS 50 ML 50 ML IV ONE ×2 (01:30→01:31)
--- NOTE | 2018-10-15 01:50 | Diagnostic Imaging Report ---
EXAM: Abdomen 1 Views INDICATION: Stent placement COMPARISON: abdominal radiograph 09/26/2018; abdominal CT 08/14/2018 FINDINGS: . No dilated loops of small bowel. No renal calculi. There are bilateral internal nephroureteral stents, with proximal coils in the expected locations of the renal pelves, and distal coils in the expected location of the urinary bladder lumen. The positions are unchanged compared to abdominal radiograph on 09/26/2018 Nonobstructive bowel gas pattern. Partially visualized katelin and screw fixation of the proximal right femur with heterotopic calcification about the right femoral trochanters. Diffuse osseous heterogeneity. There is advanced degenerative changes in the lumbar spine and pelvis, with chronic right lateral wedging of the L1 vertebral body.. IMPRESSION: Bilateral internal nephroureteral stents appear to be appropriately position. Diffuse osseous heterogeneity consistent with prostate metastasis. Signed by: Gildardo Hernández DO on 10/15/2018 1:46 AM
[2018-10-15] MEDS ORDERED: ULTRAM50 MG PO (02:17)
[2018-10-15 02:21] VITALS: BP 126/75
== END 2018-10-15 02:45 | disposition home or self-care (01) ==
LOC: ER 23:34
DX: M54.5 Low back pain (principal); M51.36 Other intervertebral disc degeneration, lumbar region; C61 Malignant neoplasm of prostate; N30.91 Cystitis, unspecified with hematuria
CPT/HCPCS: 36415; 74018; 80053; 81001; 83880; 85025; 87086; 96374; 99284; J0696; J2270; J2405; J7030

== ENCOUNTER 2018-10-24 14:19 | Inpatient (IN) | payer MEDICARE, OTHER ==
[~2018-10-24] VITALS: Ht 190.5 cm; Wt 92.6 kg
[~2018-10-24 14:19] MED LIST changes: +ULTRAM50 MG PO
[2018-10-24] MEDS ORDERED: ACETAMINOPHEN 325 MG TAB PO NR (15:15)
[2018-10-24] MEDS ORDERED: ACETAMINOPHEN 325 MG TAB ONE (15:15)
[2018-10-24 15:54] LABS: BILIRUBIN,URINE NEGATIVE (NEGATIVE); CLARITY,URINE CLOUDY (CLEAR); COLOR,URINE YELLOW (YELLOW); KETONES,URINE NEGATIVE (NEGATIVE); LEUKOCYTE ESTERASE ,URINE MODERATE (NEGATIVE); NITRITE,URINE NEGATIVE (NEGATIVE); PROTEIN,URINE DIPSTICK 2+ (NEGATIVE); URINE UROBILINOGEN 0.2 mg/dL (0.2 - 1)
[2018-10-24 16:07] LABS: AMORPHOUS SEDIMENT,URINE MANY (FEW); BACTERIA,URINE MANY /HPF; EPITHELIAL CELLS,URINE MANY /LPF; RBC,URINE 21-50 /HPF (0-5); WBC,URINE (MAN) >50 /HPF (0-5)
--- NOTE | 2018-10-24 16:28 | Diagnostic Imaging Report ---
EXAMINATION: CHEST SINGLE (NOT PORTABLE) INDICATION: Shortness of breath COMPARISON: None FINDINGS: TUBES and LINES: None. LUNGS: The lungs are moderately inflated. No focal consolidation or pulmonary edema. PLEURA: No pleural effusion or pneumothorax. HEART AND MEDIASTINUM: The cardiomediastinal silhouette is normal in size and contour. Atherosclerotic calcifications of the thoracic aorta. BONES AND SOFT TISSUES: No acute fracture or dislocation. Severe degenerative changes of both glenohumeral joints. UPPER ABDOMEN: No free air under the diaphragm. IMPRESSION: No focal pneumonia or pulmonary edema. Signed by: Wilda Atwood MD on 10/24/2018 4:25 PM
[2018-10-24 17:01] LABS: EOSINOPHILS % 0.2 % (0.0-6.0); HEMATOCRIT 24.6 % (38.2-49.6); HEMOGLOBIN 7.9 g/dL (14.0-18.0); LYMPHOCYTES # (AUTO) 0.5 (1.0-3.2); MEAN CORPUSCULAR HEMOGLOBIN 25.6 pg (28-32); MEAN CORPUSCULAR HGB CONC 32.1 g/dL (31-35); MEAN CORPUSCULAR VOLUME 79.6 fL (81-99); MONOCYTES # (AUTO) 0.4 (0.2-0.8); MONOCYTES % 6.7 % (4.4-11.3); NEUTROPHILS # (AUTO) 4.7 (2.1-6.9); NEUTROPHILS % 83.3 % (38.7-80.0); PLATELET COUNT 133 x10e3/uL (140-360); RED BLOOD COUNT 3.09 x10e6/uL (4.3-5.7); RED CELL DISTRIBUTION WIDTH 16.2 % (11.7-14.4)
[2018-10-24] MEDS ORDERED: SODIUM CHLORIDE 0.9% 1000ML 1,000 ML IV STA (17:09)
[2018-10-24 17:14] LABS: INR 1.15; PROTHROMBIN TIME 15.3 seconds (11.9-14.5)
[2018-10-24] MEDS ORDERED: VANCOMYCIN 1GM/NS 250 ML 250 ML IV STA (17:14)
[2018-10-24 17:15] LABS: PARTIAL THROMBOPLASTIN TIME 48.9 seconds (23.8-35.5)
[2018-10-24] MEDS ORDERED: MEROPENEM 1GM 100 ML IV ONE (17:15)
[2018-10-24 17:21] LABS: ALBUMIN 2.6 g/dL (3.5-5.0); ALBUMIN/GLOBULIN RATIO 0.6 (0.8-2.0); ANION GAP 14.8 mmol/L (8-16); CALCIUM 12.3 mg/dL (8.4-10.2); CREATININE, SERUM 1.57 mg/dL (0.72-1.25); POTASSIUM 3.8 mmol/L (3.5-5.1)
[2018-10-24] MEDS ORDERED: ONDANSETRON HCL INJ 2MG/ML 2ML 2 MG/ML VIAL IV PRN (17:30)
[2018-10-24 17:50] LABS: CREATINE KINASE MB 0.4 ng/mL (0-5.0)
--- NOTE | 2018-10-24 18:59 | Diagnostic Imaging Report ---
EXAM: CT Abdomen and Pelvis WITHOUT contrast INDICATION: ^Stone Protocol ^[id number] ^1750 ^Y COMPARISON: KUB 10/15/2018, chest radiograph 10/24/2018 CT abdomen and pelvis 08/14/2018 TECHNIQUE: Abdomen and pelvis were scanned utilizing a multidetector helical scanner from the lung base to the pubic symphysis without administration of IV contrast. Absence of intravenous contrast decreases sensitivity for detection of focal lesions and vascular pathology. Coronal and sagittal reformations were obtained. Routine protocol was performed. IV CONTRAST: None. ORAL CONTRAST: Water RADIATION DOSE: Total DLP: 635.4 mGy*cm Estimated effective dose: (DLP x 0.015 x size factor) mSv COMPLICATIONS: None FINDINGS: LINES and TUBES: Bilateral ureteral stents are in adequate position and is stable when compared to prior KUB. LOWER THORAX: Trace bilateral pleural effusions with adjacent subsegmental atelectasis, mildly increased when compared to 08/14/2018. Left adrenal enlargement. HEPATOBILIARY: No focal hepatic lesions. No biliary ductal dilation. GALLBLADDER: 2.3 cm hyperdensity in the gallbladder not seen on prior exam suggestive of new gallstone. No wall thickening. SPLEEN: No splenomegaly. PANCREAS: No focal masses or ductal dilatation. ADRENALS: No adrenal nodules KIDNEYS/URETERS: Mild bilateral hydronephrosis is unchanged. No cystic or solid mass lesions. No stones. GI TRACT: No abnormal distention, wall thickening, or evidence of bowel obstruction. The appendix is normal. PELVIC ORGANS/BLADDER: The urinary bladder is moderately distended and associated with worsening circumferential enhancing wall thickening. No air within urinary bladder wall. There is interval increase in size of the prostate now measuring 8.4 cm in transverse diameter compared to 7.7 cm on prior exam and is indistinct from the urinary bladder. LYMPH NODES: Extensive retroperitoneal and bilateral iliac lymphadenopathy, which is worse in the left pelvis, now measuring 8.2 x 4.6 cm compared to 5.7 x 3 cm on 08/14/2018. VESSELS: Unremarkable. PERITONEUM / RETROPERITONEUM: No free air. Interval development of small amount of perihepatic ascites which is mildly hyperdense measuring 20 Hounsfield units and adjacent to the right kidney on series 3, image 60. There is also interval development of diffuse fat stranding within the abdomen, worse in the paracolic gutter on series 3, image 97 and adjacent to the cecum on image 120. BONES: Unchanged widespread lytic and blastic metastases throughout the axial and appendicular skeleton. No new fractures. SOFT TISSUES: Unremarkable. IMPRESSION: 1. Bilateral ureteral stents in adequate position and stable since prior exam. Unchanged mild bilateral hydronephrosis. No new stones. 2. Interval development of diffuse circumferential wall thickening of the urinary bladder and enlargement of the prostate. This is concerning for infection. 3. Progressive left pelvic metastatic lymphadenopathy. 4. Small amount of mildly hyperdense ascites mainly in the perihepatic and paracolic catheter in the right abdomen of uncertain significance. 5. Recommend urology and surgical consultation. Signed by: Dr. Shelby Smart M.D. on 10/24/2018 6:56 PM
[2018-10-24] MEDS: SODIUM CHLORIDE 0.9% 1000ML 1,000 ML IV SCH (19:03)
[2018-10-24] MEDS: MEROPENEM 1GM 100 ML IV SCH (19:11)
[2018-10-24] MEDS ORDERED: MORPHINE SULFATE INJ 4 MG/ML INJ 1ML IV NR (20:00)
[2018-10-24] MEDS ORDERED: FLORADIX PO (20:02)
[2018-10-24] MEDS ORDERED: HYDROCODON-ACE1 EA11 PO (20:03)
[2018-10-24] MEDS: HYDROMORPHONE 1MG/1ML INJ IV PRN (21:39)
[2018-10-24] MEDS: ACETAMINOPHEN 325 MG TAB PO PRN (21:40)
[2018-10-24 21:45] VITALS: BP 112/56
--- NOTE | 2018-10-24 21:45 | NUR ---
received pt from er to room 214,AAOx3, no c\o pain or discomfort, resp even and unlabored, on tele #[address], on o2 at 2L via NC, skin intact, bed in lowest and locked position, call light in reach, bed alarm on
[2018-10-24 23:00] VITALS: BP 112/56
[2018-10-25] VITALS (7 sets, daily range): BP systolic 101–144; BP diastolic 56–65
[2018-10-25 03:14] LABS: BASOPHILS % 0.2 % (0.0-1.0); EOSINOPHILS % 0.2 % (0.0-6.0); HEMATOCRIT 22.6 % (38.2-49.6); HEMOGLOBIN 7.2 g/dL (14.0-18.0); LYMPHOCYTES # (AUTO) 0.6 (1.0-3.2); LYMPHOCYTES % 13.3 % (18.0-39.1); MEAN CORPUSCULAR HEMOGLOBIN 26.3 pg (28-32); MEAN CORPUSCULAR HGB CONC 31.9 g/dL (31-35); MEAN CORPUSCULAR VOLUME 82.5 fL (81-99); MONOCYTES # (AUTO) 0.4 (0.2-0.8); MONOCYTES % 8.4 % (4.4-11.3); NEUTROPHILS # (AUTO) 3.3 (2.1-6.9); NEUTROPHILS % 73.8 % (38.7-80.0); PLATELET COUNT 98 x10e3/uL (140-360); RED BLOOD COUNT 2.74 x10e6/uL (4.3-5.7); RED CELL DISTRIBUTION WIDTH 16.2 % (11.7-14.4)
[2018-10-25 03:35] LABS: ANION GAP 13.8 mmol/L (8-16); CALCIUM 11.5 mg/dL (8.4-10.2); CREATININE, SERUM 1.41 mg/dL (0.72-1.25); POTASSIUM 3.8 mmol/L (3.5-5.1)
[2018-10-25] MEDS: MEROPENEM 1GM 100 ML IV SCH ×3 (05:33→22:00)
--- NOTE | 2018-10-25 06:42 | NUR ---
Dr. Alvarez called and notified of lab results, no new orders
--- NOTE | 2018-10-25 06:59 | Diagnostic Imaging Report ---
EXAMINATION: CHEST SINGLE (PORTABLE) INDICATION: ^SOB COMPARISON: 10/24/2018 FINDINGS: AP view TUBES and LINES: None. LUNGS: Limited by low lung volumes. Mild central vascular congestion. PLEURA: No significant pleural effusion or pneumothorax. HEART AND MEDIASTINUM: The cardiomediastinal silhouette is unremarkable. BONES AND SOFT TISSUES: No acute osseous lesion. Degenerative changes of the bilateral shoulder joints. Soft tissues are unremarkable. UPPER ABDOMEN: No free air under the diaphragm. IMPRESSION: Mild central vascular congestion. No definite focal consolidation. Signed by: Dr. Errol Marte MD on 10/25/2018 6:56 AM
[2018-10-25 07:05] LABS: CREATINE KINASE MB 0.3 ng/mL (0-5.0)
[2018-10-25 07:46] LABS: EOSINOPHILS % (MANUAL) 1 % (0-7); LYMPHOCYTES % (MANUAL) 15 % (19-48); MONOCYTES % (MANUAL) 4 % (3.4-9.0); NEUTROPHILS % (MANUAL) 80 % (40-74)
[2018-10-25 07:49] LABS: ANISOCYTOSIS SLIG; PLATELET ESTIMATE MODERATELY DECREASED; PLATELET MORPHOLOGY COMMENT NORMAL; POIKILOCYTOSIS SLIGHT; RBC MORPHOLOGY COMMENT NORMAL
[2018-10-25] MEDS: SODIUM CHLORIDE 0.9% 1000ML 1,000 ML IV SCH ×4 (08:00→22:02)
--- NOTE | 2018-10-25 08:30 | NUR ---
Dr. Nielson visited and asked that the pt. be bladder scanned post vd and if greater than 100 cc to placed cath. There was only 33 ml. remaining in the bladder post scan. The pt. has diaper in place.
[2018-10-25 11:40] LABS: CREATINE KINASE MB 0.2 ng/mL (0-5.0)
--- NOTE | 2018-10-25 15:03 | NUR ---
NOTIFIED OF MICRO RESULTS AND NO NEW ORDERS.
[2018-10-25] MEDS: HYDROMORPHONE 1MG/1ML INJ IV PRN (17:00)
--- NOTE | 2018-10-25 18:23 | Consultation ---
DATE OF CONSULTATION: REASON FOR CONSULTATION: Fever and chills. Thank you so much for asking me to see this patient. HISTORY OF PRESENT ILLNESS: This patient who is a 78-year-old male, the patient who had history of TURP, he had partial TURP on August 17. He had diagnosis of prostate cancer. He had Chandler bilateral stent placement. The patient comes in with fever and chills, pain. The patient was admitted on IV antibiotic. I was asked to see him. He is currently just not feeling well. The patient was recently here in the hospital in August. He does have history of enlarged prostate diagnosed with cancer, low back surgery before. PAST MEDICAL HISTORY: As above. PAST SURGICAL HISTORY: As above. ALLERGIES: NKA. SOCIAL HISTORY: Denies smoking, drug abuse, or alcohol abuse. FAMILY HISTORY: Noncontributory. REVIEW OF SYSTEMS: GENERAL: At the present time, he is just not feeling well, complaining of fever and chills. HEENT: There is no headache, visual changes or hearing changes. GI: There is no nausea. No vomiting. No diarrhea. CARDIAC: There is no arrhythmia. NEUROLOGIC: No seizure activity. SKIN: There is no rash. JOINTS: There is no erythema or edema. He is having suprapubic discomfort, fever and chills and urgency. LABORATORY DATA: His labs showed a white count of 5.66, hemoglobin 7.9, his platelet of 133. Sodium 137, potassium 3.8. His creatinine 1.41. His blood cultures Gram-negative rods. His urine cultures Gram-negative rods. His CAT scan of the abdomen and pelvis was done, showed bilateral ureteral stent, diffuse circumferential wall thickening of the urinary bladder within enlargement of the prostate, concerning for infection. Progression of the left pelvic metastases, lymphadenopathy. PHYSICAL EXAMINATION: GENERAL: He is currently alert, does not seem to be in acute distress. VITAL SIGNS: Stable. T-max 100.3, heart rate 117, blood pressure 112/56. HEENT: Not icteric. Normocephalic. NECK: Supple. CHEST: Clear bilaterally. HEART: S1, S2. No S3, S4, or murmur. ABDOMEN: Soft. Bowel sounds present. No tenderness. EXTREMITIES: No edema. SKIN: No rash. IMPRESSION: 1. Sepsis with pyelonephritis, urinary tract infection. 2. Acute kidney injury, probably underlying chronic kidney disease. 3. Anemia probably multifactorial. 4. Prostate cancer. 5. From Infectious Disease point of view agree with IV fluid. Agree with meropenem. Blood cultures are growing Gram-negative rods. Urine culture is showing Gram-negative rods. Continue with above. We will continue supportive care. Further recommendations depending on clinical progress and the bacteria. 6. Recurrent prostate cancer, per Radiology. 7. Anemia. Recheck CBC. May need blood transfusion. We will follow. Workup per Internal Medicine. MD OCTAVIO Olsen/KATIE /[id number]
[2018-10-26] VITALS (8 sets, daily range): BP systolic 106–125; BP diastolic 56–63
[2018-10-26] MEDS: SODIUM CHLORIDE 0.9% 1000ML 1,000 ML IV SCH ×2 (03:58→14:28)
[2018-10-26] MEDS: MEROPENEM 1GM 100 ML IV SCH ×3 (05:36→22:14)
[2018-10-26] MEDS: HYDROMORPHONE 1MG/1ML INJ IV PRN ×3 (08:12→22:16)
--- NOTE | 2018-10-26 17:20 | NUR ---
REPORT GIVEN TO NIGHT RNGABRIELLE. PT HAS NO COMPLAINTS AND SHOWS NO S/S OF DISTRESS
[2018-10-26] MEDS ORDERED: FUROSEMIDE INJ 10 MG/ML 2 ML VIAL IV PRN (17:30)
[2018-10-26] MEDS ORDERED: SODIUM CHLORIDE 0.9% 250ML 250 ML IV ONE (17:30)
[2018-10-26] MEDS ORDERED: DIPHENHYDRAMINE HCL INJ 50 MG/ML VIAL IV ONE ×2 (18:00→22:30)
[2018-10-26] MEDS ORDERED: ACETAMINOPHEN 325 MG TAB PO ONE ×2 (18:00→22:30)
--- NOTE | 2018-10-26 19:15 | NUR ---
Pt visited in room during nursing rounds. Patient alert and oriented x3. No distress or discomfort noted. Pt weak at this time to ambulate and is on bedrest. IVF (NS at 100ml/hr) infusing. Pt aware will receive 2 units of PRBC tonight per MD order. Family at bedside visiting. Call ayala within reach.
[2018-10-26 20:51] LABS: HEMATOCRIT 22.7 % (38.2-49.6)
[2018-10-26] MEDS ORDERED: SODIUM CHLORIDE 0.9% 250ML 250 ML ONE (22:04)
--- NOTE | 2018-10-26 23:50 | NUR ---
Started 1st unit of PRBC per MD order. Pt v/s stable.
[2018-10-27] VITALS (9 sets, daily range): BP systolic 115–145; BP diastolic 56–71
--- NOTE | 2018-10-27 00:50 | NUR ---
1st unit PRBC finished. Pt tolerated transfusion well. V/S stable.
[2018-10-27] MEDS: SODIUM CHLORIDE 0.9% 1000ML 1,000 ML IV SCH ×2 (03:58→18:16)
--- NOTE | 2018-10-27 04:00 | NUR ---
Started 2nd unit PRBC. V/S stable.
[2018-10-27] MEDS ORDERED: SODIUM CHLORIDE 0.9% 250ML 250 ML ONE (04:05)
[2018-10-27] MEDS: ACETAMINOPHEN 325 MG TAB PO PRN (04:47)
--- NOTE | 2018-10-27 06:00 | NUR ---
2nd unit PRBC finished. Pt tolerated transfusion well. V/S stable.
[2018-10-27] MEDS: MEROPENEM 1GM 100 ML IV SCH ×3 (06:44→22:56)
[2018-10-27 08:46] LABS: BASOPHILS % 0.2 % (0.0-1.0); EOSINOPHILS # (AUTO) 0.2 (0.0-0.4); EOSINOPHILS % 4.9 % (0.0-6.0); HEMATOCRIT 28.3 % (38.2-49.6); HEMOGLOBIN 9.2 g/dL (14.0-18.0); LYMPHOCYTES # (AUTO) 0.7 (1.0-3.2); LYMPHOCYTES % 15.6 % (18.0-39.1); MEAN CORPUSCULAR HEMOGLOBIN 27.2 pg (28-32); MEAN CORPUSCULAR HGB CONC 32.5 g/dL (31-35); MEAN CORPUSCULAR VOLUME 83.7 fL (81-99); MONOCYTES # (AUTO) 0.4 (0.2-0.8); MONOCYTES % 9.1 % (4.4-11.3); NEUTROPHILS # (AUTO) 3.3 (2.1-6.9); NEUTROPHILS % 68.7 % (38.7-80.0); PLATELET COUNT 116 x10e3/uL (140-360); RED BLOOD COUNT 3.38 x10e6/uL (4.3-5.7); RED CELL DISTRIBUTION WIDTH 15.5 % (11.7-14.4)
[2018-10-27 09:00] LABS: ANION GAP 9.4 mmol/L (8-16); BLOOD UREA NITROGEN 18 mg/dL (7-26); BUN/CREATININE RATIO 17 (6-25); CALCIUM 10.7 mg/dL (8.4-10.2); CARBON DIOXIDE 33 mmol/L (22-29); CHLORIDE 101 mmol/L (98-107); CREATININE, SERUM 1.04 mg/dL (0.72-1.25); EST GLOMERULAR FILTRATION RATE > 60 ML/MIN (60-); GLUCOSE 117 mg/dL (74-118); POTASSIUM 3.4 mmol/L (3.5-5.1); SODIUM 140 mmol/L (136-145)
[2018-10-27] MEDS: HYDROMORPHONE 1MG/1ML INJ IV PRN ×2 (10:16→15:05)
--- NOTE | 2018-10-27 10:18 | NUR ---
The pt. has been consented for PICC line placement and radiology notified for same.
--- NOTE | 2018-10-27 11:51 | NUR ---
I spoke with Dr Orosco to okay placement of the PICC line and the nurse is here at this time.
--- NOTE | 2018-10-27 13:11 | NUR ---
CM SPOKE TO BEDSIDE DOUGIE MARTINEZ REGARDING PLAN OF CARE AND DISCHARGE PLAN. PATIENT TO RECEIVE PICC PLACEMENT FOR MAPLE SYRUP MAKER IV ABX TREATMENTS. PATIENTS TO BE DISCHARGED HOME AND RECEIVE IV ABX AT DR. DRAKE'S OFFICE. PENDING INSURANCE AUTH AND SET UP AT DR. DRAKE'S OFFICE FOR DISCHARGE.
--- NOTE | 2018-10-27 13:29 | Diagnostic Imaging Report ---
Chest, 1 view, 10/27/2018. History: PICC placement. Comparison: 10/25/2018. Findings: Left lateral lung is excluded from the exam. Left upper extremity PICC terminates near the cavoatrial junction. The cardiomediastinal silhouette and pulmonary vasculature are within normal limits for a portable exam. Right lung is clear. Impression: Left upper extremity PICC in adequate position. Signed by: Seamus Ríos on 10/27/2018 1:25 PM
--- NOTE | 2018-10-27 15:18 | Consultation ---
DATE OF CONSULTATION: Renal Consult REASON FOR CONSULT: Increased creatinine. HISTORY OF PRESENT ILLNESS: This is a 78-year-old male with a history of TURP. He had a partial TURP on August 17 and was diagnosed with prostate cancer and had hydronephrosis with status post bilateral stent placement, came in not feeling well with fever, chills, and pain. He was admitted and placed on IV antibiotics. ALLERGIES: NO KNOWN DRUG ALLERGIES. SOCIAL HISTORY: No smoking. No alcohol. No drugs. FAMILY HISTORY: Noncontributory. PAST MEDICAL HISTORY: Enlarged prostate with prostate cancer. PAST SURGICAL HISTORY: 1. TURP. 2. Low back surgery. REVIEW OF SYSTEMS: Not feeling well. Not answering well. Positive nausea. Positive decreased weight. No vomiting. No diarrhea. No blood in the stool. No shortness of breath. No chest pain. No wheezes. No rales. Positive generalized weakness. Positive decreased appetite. No depression or schizoaffective disorder. No bleeding. No skin lesion. All pertinent review of system are reviewed, positive as above, otherwise negative. PHYSICAL EXAMINATION: GENERAL: Alert, following commands. HEENT: Pupils are equal and reactive to light and accommodation. NECK: No JVD. No bruit. LUNGS: No rhonchi. No rales. HEART: Regular rate and rhythm. No S3, no S4. ABDOMEN: Nontender and nondistended. No hepatomegaly or splenomegaly. EXTREMITIES: No clubbing, cyanosis, or edema. NEUROLOGIC: Cranial nerves II through XII grossly intact. Sensation intact. Motor intact. VITAL SIGNS: Blood pressure 115/57 and temperature 99.4. LABORATORY DATA: White count 4.74, hemoglobin 9.2, up from 7, and platelets 116. Creatinine 1.04, down from 1.41, sodium 140, potassium 3.4, and chloride 101. Urine, many bacteria. Abdominal CT without contrast demonstrated bilateral ureteral stent in adequate position, stable since prior exam, progressive right pelvic metastatic lymphadenopathy, small amount of mildly hyperdense ascites. ASSESSMENT AND PLAN: 1. Acute kidney failure secondary to urinary tract infection. The patient is currently diagnosed with Klebsiella and pyelonephritis. is following and also Infectious Disease. The plan is IV antibiotics secondary to his bacteremia. 2. Status post bilateral stent. 3. With acute tubular necrosis, sometimes has diuresis and electrolytes will be affected, so we will add potassium or magnesium as needed. 4. Debilitation, probably the patient will need PT/OT. 5. Prostate cancer, followed by Urology. Waldemar Orosco MD MA/KATIE /[id number]
--- NOTE | 2018-10-27 17:36 | NUR ---
The pt.'s son is visiting and was asked to bring the med from home and he spoke with the spouse to bring the med tomorrow.
--- NOTE | 2018-10-27 19:17 | NUR ---
Bedside report and walking rounds complete. Pt resting in bed and in no apparent distress. All safety measured ensured and pt call ayala near.
--- NOTE | 2018-10-27 20:39 | NUR ---
Pt family brought Xtandi medication. Pt refused to take it and wants to speak with Dr. Nielson tomorrow before taking it.
[2018-10-28] VITALS (8 sets, daily range): BP systolic 95–139; BP diastolic 52–77
[2018-10-28] MEDS: ACETAMINOPHEN 325 MG TAB PO PRN ×2 (02:32→17:56)
[2018-10-28 05:49] LABS: ANION GAP 14.5 mmol/L (8-16); BLOOD UREA NITROGEN 15 mg/dL (7-26); BUN/CREATININE RATIO 18 (6-25); CALCIUM 10.1 mg/dL (8.4-10.2); CARBON DIOXIDE 29 mmol/L (22-29); CHLORIDE 105 mmol/L (98-107); CREATININE, SERUM 0.85 mg/dL (0.72-1.25); EST GLOMERULAR FILTRATION RATE > 60 ML/MIN (60-); GLUCOSE 108 mg/dL (74-118); POTASSIUM 3.5 mmol/L (3.5-5.1); SODIUM 145 mmol/L (136-145)
[2018-10-28] MEDS: SODIUM CHLORIDE 0.9% 1000ML 1,000 ML IV SCH ×3 (05:59→23:54)
[2018-10-28] MEDS: MEROPENEM 1GM 100 ML IV SCH ×3 (06:42→21:10)
--- NOTE | 2018-10-28 07:00 | NUR ---
BEDSIDE SHIFT REPORT RECEIVED FROM BEATRIZ CONSTANTINO. PT DENIES NEEDS AT THIS TIME.
--- NOTE | 2018-10-28 07:40 | NUR ---
Bedside report and walking rounds complete with day shift RN
--- NOTE | 2018-10-28 16:15 | Progress Note ---
DATE: SUBJECTIVE: Mr. Keller was lying in bed, comfortable. No complaint. A 78-year-old male with history of TURP comes in with sepsis. He grew a Klebsiella oxytoca ESBL in the blood and in the urine. REVIEW OF SYSTEMS: HEENT: Negative. PULMONARY: Negative. CARDIAC: Negative. PHYSICAL EXAMINATION: GENERAL: He is currently alert, oriented, does not seem to be in acute distress. VITAL SIGNS: Stable, currently afebrile. HEENT: Normocephalic. Not icteric. NECK: Supple. No JVD. No lymphadenopathy. No thyromegaly. CHEST: Clear bilaterally. HEART: S1, S2. No S3, S4 or murmur. ABDOMEN: Soft. IMPRESSION: Sepsis present on admission with gram-negative Klebsiella oxytoca. PLAN: The plan is meropenem 1 g IV q.8 for 14 days, could be discharged home from Infectious Disease point of view once at a range. Recheck CBC. Recheck Chem panel. MD OCTAVIO Olsen/MODL /[id number]
[2018-10-29] VITALS (7 sets, daily range): BP systolic 111–130; BP diastolic 58–76
[2018-10-29] MEDS: ACETAMINOPHEN 325 MG TAB PO PRN ×2 (02:35→14:02)
[2018-10-29] MEDS: MEROPENEM 1GM 100 ML IV SCH ×3 (05:30→22:47)
--- NOTE | 2018-10-29 07:15 | NUR ---
PT RESTING IN BED AA0X3. PT IS ON CONTACT ISOLATION FOR INFECTIOUS URINE PT HAS IV ACCESS TO LEFT PICC LINE WITH IV FLUIDS RUNNING. IV SITE IS CLEAN AND DRY LEFT FA 20 WILL BE DC. (NOT NEEDED) PT HAS GENERALIZED WEAKNESS, PT ON THE CASE. FOR NOW PT WILL BE ON AIR MATRESS AND TURNING Q2 FOR ULCER PREVENTION BOTTOM IS DRY AND INTACT. NO SORES NOTED PT IS ON DIAPER FOR INCONTINENCE SED PLACED AND PITTING EDEMA IS NOTED TO BILATERAL LOWER EXTREMITIES 2+ WILL CONTINUE TO MONITOR PT CLOSELY AT THIS TIME SIDE RAILSX2, BED WHEELS LOCKED, CALL LIGHT IS WITHIN EASY REACH, INSTRUCTED TO CALL FOR ASSISTANCE IF NEEDED
[2018-10-29] MEDS: SODIUM CHLORIDE 0.9% 1000ML 1,000 ML IV SCH ×3 (10:09→21:46)
[2018-10-29] MEDS: HYDROMORPHONE 1MG/1ML INJ IV PRN (10:09)
[2018-10-30] VITALS (8 sets, daily range): BP systolic 118–142; BP diastolic 58–75
[2018-10-30] MEDS: MEROPENEM 1GM 100 ML IV SCH ×3 (06:11→21:33)
[2018-10-30 08:05] LABS: BASOPHILS % 0.2 % (0.0-1.0); EOSINOPHILS # (AUTO) 0.2 (0.0-0.4); EOSINOPHILS % 3.9 % (0.0-6.0); HEMATOCRIT 25.7 % (38.2-49.6); HEMOGLOBIN 8.2 g/dL (14.0-18.0); LYMPHOCYTES # (AUTO) 1.2 (1.0-3.2); LYMPHOCYTES % 23.2 % (18.0-39.1); MEAN CORPUSCULAR HEMOGLOBIN 26.6 pg (28-32); MEAN CORPUSCULAR HGB CONC 31.9 g/dL (31-35); MEAN CORPUSCULAR VOLUME 83.4 fL (81-99); MONOCYTES # (AUTO) 0.3 (0.2-0.8); MONOCYTES % 6.2 % (4.4-11.3); NEUTROPHILS # (AUTO) 3.3 (2.1-6.9); NEUTROPHILS % 61.8 % (38.7-80.0); PLATELET COUNT 130 x10e3/uL (140-360); RED BLOOD COUNT 3.08 x10e6/uL (4.3-5.7); RED CELL DISTRIBUTION WIDTH 16.6 % (11.7-14.4)
[2018-10-30 08:21] LABS: ANION GAP 12.5 mmol/L (8-16); BLOOD UREA NITROGEN 13 mg/dL (7-26); BUN/CREATININE RATIO 16 (6-25); CALCIUM 9.7 mg/dL (8.4-10.2); CARBON DIOXIDE 30 mmol/L (22-29); CHLORIDE 106 mmol/L (98-107); CREATININE, SERUM 0.79 mg/dL (0.72-1.25); EST GLOMERULAR FILTRATION RATE > 60 ML/MIN (60-); GLUCOSE 98 mg/dL (74-118); POTASSIUM 3.5 mmol/L (3.5-5.1); SODIUM 145 mmol/L (136-145)
[2018-10-30 08:43] LABS: EOSINOPHILS % (MANUAL) 6 % (0-7); LYMPHOCYTES % (MANUAL) 30 % (19-48); METAMYELOCYTES % (MANUAL) 1 % (0-0); MONOCYTES % (MANUAL) 3 % (3.4-9.0); NEUTROPHILS % (MANUAL) 60 % (40-74)
[2018-10-30 08:44] LABS: ANISOCYTOSIS SLIGHT; PLATELET ESTIMATE SLIGHTLY DECREASED; PLATELET MORPHOLOGY COMMENT NORMAL; RBC MORPHOLOGY COMMENT NORMAL
[2018-10-30] MEDS: HYDROMORPHONE 1MG/1ML INJ IV PRN (15:52)
--- NOTE | 2018-10-30 20:00 | NUR ---
INITIAL ASSESSMENT COMPLETE, PT IN BED, TELE ON, PICC LINE INTACT, SCDS ON LEGS, CALL LIGHT IN REACH, PT ON CONTACT ISOLATION FOR ESBL, PT TO HAVE PROCEDURE IN AM, CONSENT SIGNED, NO DISTRESS NOTED, NO PAIN NOTED, TOLD TO CALL FOR HELP
[2018-10-30] MEDS ORDERED: SODIUM CHLORIDE 0.9% 500ML 500 ML ONE (21:34)
--- NOTE | 2018-10-31 | NUR ---
pt awake easily, vs stable, call light in reach, no distress noted, told to call for needs
[2018-10-31] MEDS: HYDROMORPHONE 1MG/1ML INJ IV PRN (02:52)
--- NOTE | 2018-10-31 04:00 | NUR ---
pjt awake for lab and vs, vs stable, no distress noted, no other needs at this time, continue to monitor condition
[2018-10-31 04:05] VITALS: BP 124/73
[2018-10-31 04:46] LABS: BASOPHILS % 0.2 % (0.0-1.0); EOSINOPHILS # (AUTO) 0.2 (0.0-0.4); HEMATOCRIT 27.3 % (38.2-49.6); HEMOGLOBIN 8.8 g/dL (14.0-18.0); LYMPHOCYTES % 18.6 % (18.0-39.1); MEAN CORPUSCULAR HEMOGLOBIN 26.8 pg (28-32); MEAN CORPUSCULAR HGB CONC 32.2 g/dL (31-35); MEAN CORPUSCULAR VOLUME 83.2 fL (81-99); MONOCYTES # (AUTO) 0.3 (0.2-0.8); MONOCYTES % 5.2 % (4.4-11.3); NEUTROPHILS # (AUTO) 3.8 (2.1-6.9); NEUTROPHILS % 66.9 % (38.7-80.0); PLATELET COUNT 127 x10e3/uL (140-360); RED BLOOD COUNT 3.28 x10e6/uL (4.3-5.7); RED CELL DISTRIBUTION WIDTH 16.5 % (11.7-14.4)
[2018-10-31 05:06] LABS: ANION GAP 10.4 mmol/L (8-16); BLOOD UREA NITROGEN 12 mg/dL (7-26); BUN/CREATININE RATIO 15 (6-25); CALCIUM 10.1 mg/dL (8.4-10.2); CARBON DIOXIDE 31 mmol/L (22-29); CHLORIDE 103 mmol/L (98-107); EST GLOMERULAR FILTRATION RATE > 60 ML/MIN (60-); GLUCOSE 100 mg/dL (74-118); POTASSIUM 3.4 mmol/L (3.5-5.1); SODIUM 141 mmol/L (136-145)
[2018-10-31] MEDS: MEROPENEM 1GM 100 ML IV SCH ×3 (05:44→21:05)
--- NOTE | 2018-10-31 06:02 | NUR ---
pt awake for meds, call light in reach, no distress noted
[2018-10-31 06:18] LABS: BAND NEUTROPHILS % (MANUAL) 3 %; EOSINOPHILS % (MANUAL) 2 % (0-7); LYMPHOCYTES % (MANUAL) 8 % (19-48); MONOCYTES % (MANUAL) 13 % (3.4-9.0); NEUTROPHILS % (MANUAL) 74 % (40-74)
[2018-10-31 06:20] LABS: PLATELET ESTIMATE SLIGHTLY DECREASED
[2018-10-31 06:21] LABS: POIKILOCYTOSIS MODERATE
[2018-10-31 06:22] LABS: TEAR DROP CELLS MODERATE
[2018-10-31 06:27] LABS: OVALOCYTES FEW; PLATELET MORPHOLOGY COMMENT NORMAL
[2018-10-31 06:28] LABS: RBC MORPHOLOGY COMMENT ABNORMAL
[2018-10-31 07:24] VITALS: BP 141/78
[2018-10-31] MEDS ORDERED: POTASSIUM CHLORIDE 10MEQ EA PO ONE (09:00)
--- NOTE | 2018-10-31 11:05 | NUR ---
BELLA SPOKE TO MERI WITH DR. DRAKE OFFICE REGARDING PATIENT DISCHARGE PLAN TO RECEIVE IV ABX AT DR. DRAKE OFFICE. MERI STATES THAT THEY ARE STILL PENDING INSURANCE AUTH AT THIS TIME.
[2018-10-31 11:18] VITALS: BP 118/69
[2018-10-31] MEDS ORDERED: IOPAMIDOL 610MG/1ML 300 MG/ML VIAL IV ONE (12:56)
[2018-10-31] MEDS ORDERED: B&O 60MG R/S 60 MG SUPP PR ONE (12:56)
--- NOTE | 2018-10-31 14:03 | NUR ---
Nutrition Screen Note RD Recommendation for Physician: -Advance diet as tolerated to renal/ ADA diet -If PO intake is poor, rec 8oz Nepro PRN (425kcal, 19g protein) through PEG tube Plan of Care: RD following, monitoring for tolerance and adequacy Nutrition reason for involvement: Nutrition Risk Trigger MST Primary Diagnose(s): acute Crohns dz, hypertensive emergency, nausea/ vomiting PMH: ESRD on HD, Crohns, PEG tube, DM Ht: 62in Wt: 113.19lb BMI: 20.7kg/m2 IBW: 110lb +/- 10% RD Assessment: (10/26) Chart reviewed. Labs and meds reviewed. 29yo F, who was admitted for abdominal pain with nausea and vomiting for several days. Abd X-ray WNL. Visited pt in the room. Pt had PEG tube placed since April 2018. Pt didnt know why she got the PEG tube. Pt tolerated clear liquid diet without any complains. During my visit, pt was in no distress, playing on her cellphone. Pt reported getting 1 bottle of Nepro through PEG when she has poor appetite. Pt also complained of some sore throat after esophageal dilation a month ago. Pt denied any swallowing difficulty since then. Weight has been stable at 110 115lbs. Rec advance diet as tolerated. Current Diet: clear liquid diet Malnutrition Evaluation (10/26/2018) The patient does not meet criteria for a specified degree of malnutrition at this time. Will re-evaluate at follow-up as appropriate. Diet Education Needs Assessment: Diet education not indicated. Nutrition Care Level: low Signed: Addendum: 10/31/18 at 1403 by Joanne ALEMAN Note entered in error
--- NOTE | 2018-10-31 14:04 | NUR ---
Nutrition Intervention Note RD Recommendation(s) for Physician: - Resume Cardiac diet when feasible - Recommend Ensure Compact for adequacy TID Plan of Care: RD following, monitoring for tolerance and adequacy Nutrition reason for involvement: LOS RD Assessment 10/31: 78 YOM admitted for fever and pyelonephritis with hx of prostate cancer. Pt seen today for LOS. Pt currently NPO for planned cystoscopy with stent placement per RN. 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 Pt reports UBW of 210-215#, no significant change. Pt receptive to supplementation after diet advanced post operatively. No family at bedside at time of visit. Pt discussed during am rounds. Will monitor and continue to follow. Principal Problems/Diagnoses: fever, pyelonephritis PMH: prostate cancer, partial TURP 08/21 GI: LBM 10/31 Skin: intact Labs: 10/31: na 141, k 3.4, Cl 103, CO2 31, BUN 12, Cr 0.8, Gluc 100 Meds: abx, dilaudid, lasix, zofran Ht: 75 in Wt: 204.6 lb BMI: 25.5 IBW: 196 lb Malnutrition Evaluation (10/31/18) The patient does not meet criteria for a specified degree of malnutrition at this time. Will re-evaluate at follow-up as appropriate. Nutrition Prescription (Diet Order): NPO- procedure today Estimated Nutritional Needs: 7501-2855 calories/day (18-22 kcal/kg CBW) 93-139 g protein/day (1-1.5 g pro/kg CBW) Diet Adequacy: Not meeting calorie needs, Not meeting protein needs- NPO for procedure Diet Education Needs Assessment: Diet education not indicated, patient on temporary/transition diet. 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
--- NOTE | 2018-10-31 14:30 | NUR ---
Received report from recovery nurse. Per recovery nurse patient , a campbell was inserted and was irrigated until clear, but patient has hematuria. Patient will be coming back to room 214
[2018-10-31 15:26] VITALS: BP 125/72
--- NOTE | 2018-10-31 16:00 | NUR ---
Dr. Nielson is here making rounds. Notified him patient continues to have hematuria, he said to continue PRN irrigation
--- NOTE | 2018-10-31 17:00 | NUR ---
Irrigated campbell with NS per order, received several small blood clots, but campbell was able to irrigate without difficulty.
[2018-10-31] MEDS ORDERED: DEXAMETHASONE SOD PHOS INJ 4 MG/ML VIAL ONE (18:53)
[2018-10-31] MEDS ORDERED: SEVOFLURANE INHAL SOLN 250 ML PEN BTL ONE (18:53)
[2018-10-31] MEDS ORDERED: PROPOFOL IV EMULSION 10 MG/ML 20 ML VIAL ONE (18:53)
[2018-10-31] MEDS ORDERED: LIDOCAINE HCL 2% LOCAL INJ 5 ML SDV VIAL INJ ONE (18:53)
[2018-10-31] MEDS ORDERED: ONDANSETRON HCL INJ 2MG/ML 2ML 2 MG/ML VIAL ONE (18:53)
[2018-10-31] MEDS ORDERED: FENTANYL CITRATE/PF 100MCG/2 ML INJ ONE (18:53)
[2018-10-31 20:00] VITALS: BP 111/59
[2018-10-31 21:00] VITALS: BP 125/72
[2018-11-01] VITALS (8 sets, daily range): BP systolic 113–131; BP diastolic 58–74
[2018-11-01 04:30] LABS: BASOPHILS % 0.1 % (0.0-1.0); EOSINOPHILS # (AUTO) 0.1 (0.0-0.4); EOSINOPHILS % 0.9 % (0.0-6.0); HEMATOCRIT 26.6 % (38.2-49.6); HEMOGLOBIN 8.5 g/dL (14.0-18.0); LYMPHOCYTES % 25.3 % (18.0-39.1); MEAN CORPUSCULAR HEMOGLOBIN 26.6 pg (28-32); MEAN CORPUSCULAR VOLUME 83.1 fL (81-99); MONOCYTES # (AUTO) 0.3 (0.2-0.8); MONOCYTES % 4.1 % (4.4-11.3); NEUTROPHILS # (AUTO) 5.4 (2.1-6.9); NEUTROPHILS % 66.3 % (38.7-80.0); PLATELET COUNT 151 x10e3/uL (140-360); RED CELL DISTRIBUTION WIDTH 16.6 % (11.7-14.4)
--- NOTE | 2018-11-01 04:33 | NUR ---
Irrigated patient's campbell with 3 or 4 very small clots noted. Campbell care performed and draining well.
[2018-11-01 04:50] LABS: ANION GAP 14.8 mmol/L (8-16); BLOOD UREA NITROGEN 16 mg/dL (7-26); BUN/CREATININE RATIO 17 (6-25); CALCIUM 10.2 mg/dL (8.4-10.2); CARBON DIOXIDE 28 mmol/L (22-29); CHLORIDE 102 mmol/L (98-107); CREATININE, SERUM 0.92 mg/dL (0.72-1.25); EST GLOMERULAR FILTRATION RATE > 60 ML/MIN (60-); GLUCOSE 117 mg/dL (74-118); POTASSIUM 3.8 mmol/L (3.5-5.1); SODIUM 141 mmol/L (136-145)
[2018-11-01] MEDS: MEROPENEM 1GM 100 ML IV SCH ×3 (05:11→21:09)
[2018-11-01 08:06] LABS: BAND NEUTROPHILS % (MANUAL) 5 %; EOSINOPHILS % (MANUAL) 1 % (0-7); LYMPHOCYTES % (MANUAL) 23 % (19-48); MONOCYTES % (MANUAL) 4 % (3.4-9.0); NEUTROPHILS % (MANUAL) 67 % (40-74)
[2018-11-01 08:10] LABS: PLATELET ESTIMATE ADEQUATE; PLATELET MORPHOLOGY COMMENT NORMAL; RBC MORPHOLOGY COMMENT NORMAL
[2018-11-01] MEDS: ACETAMINOPHEN 325 MG TAB PO PRN ×3 (08:25→22:15)
--- NOTE | 2018-11-01 10:28 | NUR ---
Chavez irrigated with NS per orders, patient continues to have hematuria, no clots at this time.
--- NOTE | 2018-11-01 12:46 | NUR ---
Chavez irrigated with NS , no clots noted, patient continues to have hematuria
--- NOTE | 2018-11-01 20:45 | NUR ---
IRRIGATED THURMAN PER MD ORDER. NO BLOOD CLOT NOTED. BRIGHT RED URINE NOTED
--- NOTE | 2018-11-01 21:45 | NUR ---
PATIENT RESTING QUIETLY IN BED. RESP EVEN AND UNLABORED. NO ACUTE DISTRESS NOTED. TELE IN PLACE. CALL LIGHT WITHIN REACH. BED LOW/LOCKED. CONTINUE TO MONITOR CLOSELY
[2018-11-02] VITALS (8 sets, daily range): BP systolic 110–121; BP diastolic 55–66
--- NOTE | 2018-11-02 00:30 | NUR ---
IRRIGATED THURMAN PER MD ORDER. NO BLOOD CLOT NOTED. HEMATURIA NOTED
[2018-11-02] MEDS: MEROPENEM 1GM 100 ML IV SCH ×3 (05:12→21:53)
[2018-11-02 06:17] LABS: BASOPHILS % 0.1 % (0.0-1.0); EOSINOPHILS # (AUTO) 0.2 (0.0-0.4); EOSINOPHILS % 2.1 % (0.0-6.0); HEMATOCRIT 25.4 % (38.2-49.6); HEMOGLOBIN 8.1 g/dL (14.0-18.0); LYMPHOCYTES # (AUTO) 1.4 (1.0-3.2); LYMPHOCYTES % 19.8 % (18.0-39.1); MEAN CORPUSCULAR HEMOGLOBIN 26.6 pg (28-32); MEAN CORPUSCULAR HGB CONC 31.9 g/dL (31-35); MEAN CORPUSCULAR VOLUME 83.6 fL (81-99); MONOCYTES # (AUTO) 0.3 (0.2-0.8); MONOCYTES % 3.5 % (4.4-11.3); NEUTROPHILS # (AUTO) 5.2 (2.1-6.9); NEUTROPHILS % 71.9 % (38.7-80.0); PLATELET COUNT 152 x10e3/uL (140-360); RED BLOOD COUNT 3.04 x10e6/uL (4.3-5.7); RED CELL DISTRIBUTION WIDTH 16.9 % (11.7-14.4)
[2018-11-02 06:31] LABS: ANION GAP 13.7 mmol/L (8-16); BLOOD UREA NITROGEN 16 mg/dL (7-26); BUN/CREATININE RATIO 20 (6-25); CALCIUM 10.3 mg/dL (8.4-10.2); CARBON DIOXIDE 28 mmol/L (22-29); CHLORIDE 102 mmol/L (98-107); CREATININE, SERUM 0.81 mg/dL (0.72-1.25); EST GLOMERULAR FILTRATION RATE > 60 ML/MIN (60-); GLUCOSE 95 mg/dL (74-118); POTASSIUM 3.7 mmol/L (3.5-5.1); SODIUM 140 mmol/L (136-145)
[2018-11-02] MEDS: ACETAMINOPHEN 325 MG TAB PO PRN ×3 (06:40→20:06)
--- NOTE | 2018-11-02 07:10 | NUR ---
RCD PT AT BED PT IS ALERT AND ORIENTED PT RESTING ON BED IV PATENT BY SALINE FLUSH BED LOW AND LOCKED CALL LIGHT IN REACH
--- NOTE | 2018-11-02 10:00 | NUR ---
CM LEFT MESSAGE WITH PATIENT POWER OF [employer] @ [phone] REQUESTED BY PATIENT REGARDING SKILLED FACILITY PLACEMENT ORDER BY DR. CRUZ. PENDING RETURN CALL FOR CHOICE TO INITIATE TRANSFER TO [facility].
[2018-11-02 10:48] LABS: EOSINOPHILS % (MANUAL) 4 % (0-7); LYMPHOCYTES % (MANUAL) 19 % (19-48); MONOCYTES % (MANUAL) 4 % (3.4-9.0); NEUTROPHILS % (MANUAL) 72 % (40-74)
[2018-11-02 10:49] LABS: POIKILOCYTOSIS MODERATE; TEAR DROP CELLS FEW
[2018-11-02 10:50] LABS: HELMET CELLS RARE; PLATELET ESTIMATE ADEQUATE; PLATELET MORPHOLOGY COMMENT NORMAL; RBC MORPHOLOGY COMMENT ABNORMAL
--- NOTE | 2018-11-02 11:00 | NUR ---
BLADDER IRRIGATION GIVEN NO CLOTS NOTED
--- NOTE | 2018-11-02 13:02 | NUR ---
CM SPOKE TO PATIENT AND PATIENT DAUGHTER AT BEDSIDE REGARDING DISCHARGE PLAN AND PLAN OF CARE. PATIENT CHOSE TO RETURN TO [facility] FOR IV ABX TREATMENTS AND PT. PATIENT SIGNED CHOICE. CHOICE PLACED IN CHART AND CLINICAL SENT TO [facility]. PENDING INSURANCE AUTH FOR DISCHARGE. [facility] Address: [address] , [place] [address] Addendum: 11/02/18 at 1309 by Iris Llamas CM FAX: [phone]
--- NOTE | 2018-11-02 18:52 | NUR ---
PT RESTING ON BED BED SIDE REPORT GIVEN TO ONCOMING NURSE
[2018-11-03] VITALS (8 sets, daily range): BP systolic 96–123; BP diastolic 50–67
[2018-11-03] MEDS: ACETAMINOPHEN 325 MG TAB PO PRN ×4 (02:07→20:36)
--- NOTE | 2018-11-03 04:35 | NUR ---
Dressing to PICC line changed. Bladder irrigation done, small clots noted. No complain of pain.
[2018-11-03] MEDS: MEROPENEM 1GM 100 ML IV SCH ×3 (05:55→21:43)
--- NOTE | 2018-11-03 08:37 | NUR ---
BELLA SPOKE TO PATIENT MS. AMBRIZ THIS AM REGARDING PATIENT PLACEMENT. PATIENT IN CO-PAY DAYS AND WILL NEED TO PAY $100/ DAY. SHE STATES SHE IS HAVING A MEETING WITH THEIR CHILDREN THIS MORNING AND WILL CONTACT ALAN AT [facility] REGARDING PAYMENTS AND PAPERWORK. SHE STATES SHE WILL TRY TO HAVE THIS DONE BY NOON TODAY. PENDING COMPLETION OF PAPERWORK AND PAYMENTS FOR TRANSFER BED ASSIGNMENT Addendum: 11/03/18 at 0841 by Iris Llamas CM MS. AMBRIZ: [phone]
--- NOTE | 2018-11-03 14:23 | NUR ---
COMPLETED [facility] FILED COPY IN CHART AND PROVIDED COPY IN PACKET TO NURSES STATION FOR TRANSPORT WITH COMPLETED RTF ATTACHED WAITING ON AUTH AND ROOM ASSIGNMENT.
--- NOTE | 2018-11-03 19:33 | NUR ---
report given to oncoming nurse, pt stable at this time.
--- NOTE | 2018-11-03 22:35 | NUR ---
Bladder irrigation done. Small clots noted with bright red urine.
[2018-11-04] VITALS: BP 131/60
--- NOTE | 2018-11-04 | NUR ---
Patient refused SCD's.
[2018-11-04 04:00] VITALS: BP 118/61
[2018-11-04] MEDS: MEROPENEM 1GM 100 ML IV SCH ×2 (05:26→14:20)
[2018-11-04 08:10] VITALS: BP 118/66
[2018-11-04 08:21] VITALS: BP 118/66
[2018-11-04] MEDS ORDERED: ONDANSETRON HCL 4 MG ORAL DISINTEGRATING TAB PO PRN (10:30)
[2018-11-04] MEDS: ACETAMINOPHEN 325 MG TAB PO PRN (11:07)
--- NOTE | 2018-11-04 11:07 | NUR ---
Irrigated campbell catheter at this time. Patient tolerated well. No clots aspirated. No blockage noted. Irrigation fluid drained immediately after.
--- NOTE | 2018-11-04 13:26 | NUR ---
PT ACCEPTED TO [address] CALL REPORT TO [phone]
--- NOTE | 2018-11-05 04:32 | Discharge Summary ---
CONSULTANTS: 1. Dr. Travis Jackson. 2. Dr. Jeronimo Nielson. 3. Dr. Cortes Roldan. FINAL DIAGNOSES: 1. Sepsis on admission without shock. 2. Complicated urinary tract infection associated with bacteremia, associated with prostatitis and associated with bilateral ureteral stent. 3. Status post bilateral ureteral stent exchange. 4. Baseline metastatic prostate cancer. 5. Medical debility. SUMMARY: A 78 years old male needed IV antibiotic, but could not arrange for at home and then subsequently the patient debilitated stay in the hospital that difficulty walking, the patient received physical therapy. He has complicated metastatic prostate cancer. He has bilateral ureteral stent infected, prostatitis, came in with sepsis without shock. He had Klebsiella bacteremia, ESBL, now on meropenem. The patient is now discharged to skilled facility. He will continue with meropenem for 10 days. He will continue with medication. Advised the patient to go ahead and continue with his cancer medication. Follow up with Dr. Jeronimo Nielson per his instruction. MD VIKTORIYA Carr/KATIE /[id number]
--- NOTE | 2018-12-30 04:13 | Operative Report ---
DATE OF PROCEDURE: 10/31/2018 SURGEON: Jeronimo Nielson MD PREOPERATIVE DIAGNOSES: 1. Bilateral ureteral obstruction. 2. 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 3. Bilateral indwelling ureteral stents. POSTOPERATIVE DIAGNOSES: 1. Bilateral ureteral obstruction. 2. 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 3. Bilateral indwelling ureteral stents. OPERATIONS PERFORMED: 1. Cystourethroscopy with complicated removal of ureteral stents (separate procedure performed for the diagnosis of stents). 2. Cystourethroscopy with bilateral dilation. Note, these were all procedures related to the patient's previous surgery. OPERATIVE PROCEDURE IN DETAIL: Informed consent was verified. Josue Keller was properly identified, and taken to the operating room and placed on the cystoscopy table in supine position. Anesthesia was uneventfully begun. The patient was then carefully and gently repositioned in dorsal lithotomy position with all pressure points well padded. His genitalia were prepared and draped in usual sterile fashion. The 22.5-[place] cystoscope sheath with the visual obturator in place, was atraumatically inserted into the patient's urethra, was guided unremarkable distal urethra through the prostate bed significantly for visually obstructive BPH and into the patient's bladder, where a panendoscopy of the bladder revealed no suspicious mucosal lesions. There were no tumors or no stones. Heavy trabeculations were noted and stents were noted to be emerging from both ureteral orifices. A guidewire was then placed in the left ureter and guided to the level of the patient's kidney. The stent was then grasped, completely removed and discarded. A double-lumen ureteral catheter was then placed over the guidewire and guided to the level of the patient's renal pelvis. We utilized this as a coaxial dilator sheath. Contrast was then injected as we performed this procedure. The double-lumen ureteral catheter was then withdrawn and with cystoscopic and fluoroscopic guidance, the left-sided indwelling ureteral stent was then placed, it was coiled in the patient's kidneys as well as the patient's bladder. The retaining suture was cut short. An identical sequence of procedures was then performed on the right-hand side. Interpretation of retrograde ureteropyelography contrast was instilled in retrograde fashion by the double-lumen ureteral catheter. There was bilateral hydronephrosis. Bilateral calyceal blunting was noted. Both stents were in good position, coiled in the patient's kidneys as well as in the patient's bladder at the end of the case. The patient's bladder was drained. Belladonna and opium suppositories were placed. The patient was uneventfully reversed from anesthesia and taken to recovery room in stable condition. There were no complications to the procedure. The patient tolerated the procedure well. We will proceed with ongoing inpatient followup. Of course, ongoing urological followup is must as well as stent change within the next 3 months. Jeronimo MD Nisreen OH/MODL /[id number]
== END 2018-11-04 15:59 | DRG 659 ==
LOC: ER 14:19 → ERHOLD 17:27 → MED/SURG2 21:45
PROVIDERS: ADMIT Internal Medicine; ATTEND Internal Medicine
PROC: 30233N1 Transfusion of Nonautologous Red Blood Cells into Peripheral Vein, Percutaneous Approach (ICD-10-PCS; 2018-10-26)
PROC: 02HV33Z Insertion of Infusion Device into Superior Vena Cava, Percutaneous Approach (ICD-10-PCS; 2018-10-27)
PROC: B548ZZA Ultrasonography of Superior Vena Cava, Guidance (ICD-10-PCS; 2018-10-27)
PROC: 0T788DZ Dilation of Bilateral Ureters with Intraluminal Device, Via Natural or Artificial Opening Endoscopic (ICD-10-PCS; 2018-10-31)
PROC: 0TP98DZ Removal of Intraluminal Device from Ureter, Via Natural or Artificial Opening Endoscopic (ICD-10-PCS; principal; 2018-10-31 12:00)
DX: T83.592A Infection and inflammatory reaction due to indwelling ureteral stent, initial encounter (principal); A41.59 Other Gram-negative sepsis; N17.0 Acute kidney failure with tubular necrosis; R65.20 Severe sepsis without septic shock; N10 Acute pyelonephritis; N41.0 Acute prostatitis; C79.51 Secondary malignant neoplasm of bone; N13.6 Pyonephrosis; Z79.899 Other long term (current) drug therapy; Z82.49 Family history of ischemic heart disease and other diseases of the circulatory system; Z83.3 Family history of diabetes mellitus; E83.52 Hypercalcemia; D64.9 Anemia, unspecified; C61 Malignant neoplasm of prostate; B96.1 Klebsiella pneumoniae [K. pneumoniae] as the cause of diseases classified elsewhere; R53.81 Other malaise; Z16.12 Extended spectrum beta lactamase (ESBL) resistance; Z96.0 Presence of urogenital implants; K80.80 Other cholelithiasis without obstruction; Z16.24 Resistance to multiple antibiotics
CPT/HCPCS: 36415; 36569; 71045; 74176; 74420; 74470; 80048; 80053; 81001; 82550; 82553; 83605; 84484; 85014; 85018; 85025; 85610; 85730; 86850; 86900; 86920; 87040; 87071; 87086; 87186; 87205; 93005; 96374; 97139; 99284; C1758; C2617; J1100; J1170; J1200; J1940; J2001; J2270; J2405; J3010; J3370; J7030; J7040; J7050; P9016